=== PATIENT | male | born 1955 | race African-American/Black ===

== ENCOUNTER → 2017-02-20 | Outpatient (CLI) | payer OTHER, MEDICAID ==
[2016-10-20 14:43] VITALS: BP 179/129
--- NOTE | 2017-02-21 08:15 | RAD ---
HISTORY: Low back pain Study: Lumbar spine five view Comparison: August 20, 2016 Findings: There is some straightening of the normal lumbar lordosis. The alignment is otherwise normal. The ve rtebral bodies are of average height. No compression fractures are identified. Degenerative disc dis ease is present at all lumbar level to a significant degree. The pedicles are intact. The SI joints are normal. No spondylolysis or spondylolisthesis is identified. Diffuse bilateral facet degenerativ e joint disease is present. IMPRESSION: Significant degenerative disc disease at all lumbar levels least prominent at L1-2 Diffuse bilateral facet degenerative joint disease Reported By:
== END | disposition home or self-care (01) ==
LOC: RAD 15:01
PROVIDERS: ATTEND Specialist
DX: M54.5 Low back pain (principal); M51.36 Other intervertebral disc degeneration, lumbar region; M47.896 Other spondylosis, lumbar region
CPT/HCPCS: 72110

== ENCOUNTER → 2017-03-10 | Outpatient (CLI) | payer OTHER, MEDICAID ==
[2016-10-20 14:43] VITALS: BP 179/129
--- NOTE | 2017-03-10 11:37 | MRI ---
HISTORY: Degenerative disc disease Study: Lumbar spine MRI without Comparison: Lumbar spine radiograph February 20, 2017 Technique: Multiplanar multi-sequence MRI of the lumbar spine was obtained. Sagittal T1, sagittal T 2, and stir weighted images, axial T1, and axial T2 images were obtained. Findings: There are Modic type 1 degenerative endplate changes at L4-L5 and L5-S1. Bone marrow signal otherwis e appears normal. There is grade 1 degenerative anterolisthesis of L4 on L5. Lumbar vertebral body h eights and alignment otherwise appear normal. No acute fracture, subluxation or suspicious osseous l esion is seen. The conus is normal in signal and caliber, terminating at L1-L2. The imaged paraspinal soft tissues demonstrate no unexpected findings. T12 -- L1: There is mild disc desiccation/narrowing, paracentral disc bulge, greater on the left and ligamentum flavum thickening. Findings result and moderate bilateral foraminal narrowing, greater o n the left and mild canal stenosis. L1 -- L2: There is mild paracentral disc bulge, bilateral facet arthropathy and ligamentum flavum th ickening with mild-moderate bilateral foraminal narrowing and mild canal stenosis. L2 -- L3: There is moderate disc space narrowing, broad-based posterior disc bulge and bilateral lig amentum flavum thickening with moderate resultant bilateral foraminal narrowing, worse on the right and severe spinal canal stenosis. L3 -- L4: There is moderate disc space narrowing, broad-based posterior disc bulge and bilateral lig amentum flavum thickening. There is moderate resultant bilateral foraminal narrowing, worse on the r ight and severe canal stenosis. L4 -- L5: There is a large, broad-based posterior disc bulge and moderate bilateral facet arthropath y and ligamentum flavum thickening. There is moderate-severe resultant neural foraminal narrowing, g reater on the right with suspected impingement of the exiting right L4 nerve root. Severe narrowing of the spinal canal is also seen. L5 -- S1: there is severe disc space narrowing , broad based posterior disc bulge and bilateral liga mentum flavum thickening and facet arthropathy. There is moderate-severe resultant narrowing of the left greater than right neural foramina with suspected left L5 exiting nerve root impingement. Sever e spinal canal stenosis is also seen. IMPRESSION: Moderately advanced multilevel degenerative changes of the lumbosacral spine. Findings are most pron ounced at L4-L5 and L5-S1 where there is severe neural foraminal narrowing with suspected impingemen t of the exiting right L4 and left L5 nerve roots, respectively, as detailed above. Severe spinal ca nal stenosis is also present from L2-3 to L5-S1. Reported By:
== END ==
LOC: RAD 09:18
PROVIDERS: ATTEND Specialist
DX: M51.36 Other intervertebral disc degeneration, lumbar region (principal)
CPT/HCPCS: 72148

== ENCOUNTER 2017-03-31 13:35 | Day surgery (SDC) | payer OTHER, MEDICAID ==
--- NOTE | 2017-03-31 14:10 | DR.UPDATE ---
H&P Update History and Physical Update: History and Physical reviewed and patient examined. Yes with the following: Office H&P reviewed. Pt has both radicular and Facet symptoms Bi-lat. R>L. Will try L4-L5 R intralaminar ISAK intially for both diagnotic and theraputic rationale. All other information unchanged from office H&P.
[2017-03-31] MEDS ORDERED: MARCAINE 0.25% WITH EPI IJ ONE (14:17)
[2017-03-31] MEDS: MARCAINE/EPINEPHRINE ONE ×2 (14:24→14:29)
[2017-03-31] MEDS ORDERED: KENALOG INJ 40 MG ONE (14:28)
[2017-03-31 15:05] VITALS: BP 159/96
== END 2017-03-31 14:45 | disposition home or self-care (01) | DRG 552 ==
LOC: SURG1 13:35
PROVIDERS: ATTEND Specialist
PROC: 3E0R33Z Introduction of Anti-inflammatory into Spinal Canal, Percutaneous Approach (ICD-10-PCS; 2017-03-31)
PROC: B01BZZZ Fluoroscopy of Spinal Cord (ICD-10-PCS; 2017-03-31)
PROC: 3E0R3BZ Introduction of Anesthetic Agent into Spinal Canal, Percutaneous Approach (ICD-10-PCS; principal; 2017-03-31 13:30)
DX: M51.36 Other intervertebral disc degeneration, lumbar region (principal)
CPT/HCPCS: 62323; A4222; S0020; J3301

== ENCOUNTER → 2017-04-23 | Outpatient (CLI) | payer OTHER, MEDICAID ==
[2017-03-31 15:05] VITALS: BP 159/96
--- NOTE | 2017-04-23 13:50 | RAD ---
Right hand, three views Indication: Bilateral hand pain Comparison: March 09, 2013 Findings: Bone mineralization is normal. No acute fracture or malalignment is identified. There is mi nimal degenerative narrowing of the distal interphalangeal joints and thumb IP joint. Mild radiocarpa l joint space narrowing is also still seen. Small ossific bodies adjacent to the ulnar styloid are li alexander degenerative or posttraumatic in nature. Remaining joint spaces are preserved. No osseous erosio ns are identified. Soft tissues are unremarkable. Impression: Mild degenerative changes, as above without acute osseous abnormality. Reported By:
--- NOTE | 2017-04-23 13:55 | RAD ---
Left hand, three views Indication: Bilateral hand pain Comparison: December 30, 2013 Findings: Bone mineralization is normal. No acute fracture or malalignment is identified. There is mi ld degenerative arthrosis of the thumb CMC and radiocarpal joint. Remaining joint spaces of the hand are preserved without significant degenerative or erosive change. There is no localized soft tissue s welling. Impression: Mild degenerative changes, as above without acute osseous abnormality or evidence of inflammatory art hropathy. Reported By:
== END | disposition home or self-care (01) | DRG 554 ==
LOC: RAD 09:46
PROVIDERS: ATTEND Specialist
DX: M19.041 Primary osteoarthritis, right hand (principal); M19.042 Primary osteoarthritis, left hand
CPT/HCPCS: 73130

== ENCOUNTER 2017-06-02 09:25 | Emergency (ER) | payer OTHER, MEDICAID ==
[2017-06-02 09:34] VITALS: BP 110/86; BMI 21.7
[2017-06-02] MEDS ORDERED: TORADOL 60 MG VIAL IM ONE (09:53)
[2017-06-02] MEDS ORDERED: TORADOL 60 MG VIAL ONE (09:54)
--- NOTE | 2017-06-02 10:00 | DR.GENAD ---
HPI - PCP Primary Care Physician: HEBERT MELÉNDEZ - Complaint/Symptoms Chief Complaint Doctors Comments: Patient presents with complaint that his right hip is hurting. Pain 10, sharp,three days duration, aggravated by motion. He states that he has an appointment with his primary next week. Chief Complaint:: PT C/O INTERMITTANT RIGHT HIP PAIN AND THAT HE BARELY MADE IT UP HERE .. Self Treatment fo Chief Complaint: NORCO, MOTRIN - Source History Provided: Patient - Mode of Arrival Mode of Arrival: Ambulatory - Timing Onset of Chief Complaint: 05/31/17 PMH - PMH Past Medical History: Yes Past Medical History: Arthritis, Hypertension Past Surgical History: Yes Surgical History: CABG/Valve Surgery, Ortho Surgery - Family History History of Family Medical Conditions: Yes Family Medical History: Diabetes Mellitus, Cancer, Hypertension - Social History Does patient currently use any type of tobacco product: Yes Have you used tobacco products in the last 12 months: Yes Type of Tobacco Use: Cigarettes How many years tobacco product used: 43 Does any household member use tobacco: No Alcohol Use: None Do you use any recreational Drugs:: No Lives With: Alone Lives Where: Home - infectious screening In the last 2 months have you had wt loss of >10#?: NO Have you had fever, night sweats or hemotysis?: No Have you traveled outside the country in the last 6 months?: No ROS - Review of Systems Constitutional: No Symptoms Reported Eyes: No Symptoms Reported ENTM: No Symptoms Reported Respiratoy: No Symptoms Reported, See HPI Cardiovascular: No Symptoms Reported Gastrointestinal/Abdominal: No Symptoms Reported Genitourinary: No Symptoms Reported Neurological: No Symptoms Reported Musculoskeletal: Hip (right) Integumentary: No Symptoms Reported Hematologic/Lymphatic: No Symptoms Reported Endocrine: No Symptoms Reported Psychiatric: No Symptoms Reported All Other Systems: Reviewed and Negative PE - Vital Signs Vitals: Temperature 97.5 F Pulse Rate 87 Respiratory Rate 22 Blood Pressure [Right Arm] 138/90 Blood Pressure 110/86 O2 Sat by Pulse Oximetry 98 - General Limitations: No Limitations General Appearance: Alert, In No Apparent Distress - Head Head Exam: Normal Inspection, Atraumatic - Eyes Eye exam: Normal Appearance, PERRL, EOMI - ENT ENT Exam: Normal Exam External Ear Exam: Normal External Inspection TM/Canal Exam: Bilateral Normal Nose Exam: Normal Nose Exam Mouth Exam: Normal Inspection Throat Exam: Normal Inspection - Neck Neck Exam: Normal Inspection, Full ROM - Chest Chest Inspection: Normal Inspection - Respiratory Respiratory Exam: Normal Lung Sounds Bilat Respiratory Exam: Bilateral Clear to Auscultation - Cardiovascular Cardiovascular Exam: Regular Rate, Normal Rhythm - Abdominal Exam Abdominal Exam: Normal Inspection, Normal Bowel Sounds Abdominal Tenderness: negative: RUQ, RLQ, LUQ, LLQ, Epigastrium, Suprapubic, Diffuse, Mild, Moderate, Severe, Other - Extremities Extremities Exam: Other (right hip pain) - Back Back Exam: Normal Inspection - Neurologic Neurological Exam: Alert, Oriented X3, CN II-XII Intact - Psychiatric Psychiatric Exam: Normal Affect - Skin Skin Exam: Warm, Dry, Intact Course - Reevaluation 1st: Improved - Diagnosis Discharge Problem: Osteoarthritis of right hip Qualifiers: Osteoarthritis type: primary Qualified Code(s): M16.11 - Unilateral primary osteoarthritis, right hip - Discharge Plan Condition: Stable - Follow ups/Referrals Follow ups/Referrals: NFD,None [Primary Care Provider] - 3 days - Instructions
== END 2017-06-02 10:27 | disposition home or self-care (01) ==
LOC: ER 09:38
DX: M16.11 Unilateral primary osteoarthritis, right hip (principal)
CPT/HCPCS: 96372; 99282; J1885

== ENCOUNTER 2017-06-20 11:22 | Emergency (ER) | payer OTHER, MEDICAID ==
[2017-06-20 11:26] VITALS: BP 119/89; BMI 20.9
--- NOTE | 2017-06-20 12:20 | DR.GENAD ---
HPI - PCP Primary Care Physician: HEBERT - HPI Comment HPI Comment: HISTORY BELOW. - Complaint/Symptoms Chief Complaint Doctors Comments: PAIN RT HIP THAT GOT WORSE TODAY. ALL EXTREMITY JOINTS HAVE ATHRITIS AND ARE SORE. GENERALIZE WEAKNESS. HAD LIVER BIOPSY DONE. WAS NPO FOR TEST. PAIN TODAY SIMILAR TO PREVIOUS ARTHRITIS TEST. NO FEVER. Chief Complaint:: PT. C/O GENERALIZED WEAKNESS THAT STARTED YESTERDAY. PT. HAD AN OUT-PATIENT LIVER BIOPSY PROCEDURE DONE TODAY. - Nurses notes reviewed Nurses Notes Review: Yes - Source History Provided: Patient, Friend - Mode of Arrival Mode of Arrival: Wheelchair - Timing Onset of Chief Complaint: 06/19/17 Came on: Gradually - Duration Duration: Constant Duration: Days - Severity Severity: Moderate PMH - PMH Past Medical History: Yes Past Medical History: Arthritis, Hypertension Past Surgical History: Yes Surgical History: CABG/Valve Surgery, Ortho Surgery - Family History History of Family Medical Conditions: Yes Family Medical History: Diabetes Mellitus, Cancer, Hypertension - Social History Does patient currently use any type of tobacco product: Yes Have you used tobacco products in the last 12 months: Yes Type of Tobacco Use: Cigarettes Does any household member use tobacco: Yes Alcohol Use: Occasionally Do you use any recreational Drugs:: Yes Lives With: Significant Other Lives Where: Home - infectious screening In the last 2 months have you had wt loss of >10#?: NO Have you had fever, night sweats or hemotysis?: No Have you traveled outside the country in the last 6 months?: No Isolation: Standard ROS - Review of Systems Constitutional: No Symptoms Reported Eyes: No Symptoms Reported ENTM: No Symptoms Reported Respiratoy: No Symptoms Reported Cardiovascular: No Symptoms Reported Gastrointestinal/Abdominal: No Symptoms Reported Genitourinary: No Symptoms Reported Neurological: No Symptoms Reported Musculoskeletal: Joint Pain, Muscle Pain, Right, Hip Integumentary: No Symptoms Reported Hematologic/Lymphatic: No Symptoms Reported Endocrine: No Symptoms Reported All Other Systems: Reviewed and Negative PE - Vital Signs Vitals: Pulse Rate 80 Respiratory Rate 17 Blood Pressure [Right Arm] 138/90 Blood Pressure 119/89 O2 Sat by Pulse Oximetry 96 - General Limitations: No Limitations General Appearance: Alert - Head Head Exam: Normal Inspection - Eyes Eye exam: Normal Appearance - ENT ENT Exam: Normal Exam External Ear Exam: Normal External Inspection TM/Canal Exam: Bilateral Normal Nose Exam: Normal Nose Exam Mouth Exam: Normal Inspection Throat Exam: Normal Inspection - Neck Neck Exam: Normal Inspection - Chest Chest Inspection: Symmetric Chest Wall Rise - Respiratory Respiratory Exam: Normal Lung Sounds Bilat Respiratory Exam: Bilateral Rhonchi, Lower Rhonchi - Cardiovascular Cardiovascular Exam: Regular Rate, Normal Rhythm, Normal Heart Sounds - Abdominal Exam Abdominal Exam: Normal Inspection, Normal Bowel Sounds. negative: Tenderness - Extremities Extremities Exam: Tenderness (TENDERNESS RT HIP, LOPEZ.) - Back Back Exam: Normal Inspection - Neurologic Neurological Exam: Alert, Oriented X3 - Psychiatric Psychiatric Exam: Normal Affect, Normal Mood - Skin Skin Exam: Normal Color MDM - Differential Diagnosis Differential Diagnosis: ARTHRITIS. RIGHT HIP PAIN, BURSITIS, TENDINITIS Course - Treatment Treatment: SEE ORDERS. PAIN IMPROVE, PATIENT FEELING BETTER. - Education/Counseling Education/Counseling: Patient, Education Educated On: Treatment, Diagnosis, Needs for Follow Up - Diagnosis Discharge Problem: Arthralgia Qualifiers: Joint pain location: hip Laterality: right Qualified Code(s): M25.551 - Pain in right hip Osteoarthritis Qualifiers: Osteoarthritis location: multiple joints Osteoarthritis type: other Qualified Code(s): M15.8 - Other polyosteoarthritis - Discharge Plan Disposition: 01 HOME, SELF-CARE Condition: Stable Prescriptions: Acetaminophen with Codeine [Tylenol/Codeine #3 300-30 mg] 1 tab PO Q12H PRN #12 tab PRN Reason: Pain - Follow ups/Referrals Follow ups/Referrals: Leena AMBROSIO [Primary Care Provider] - 3 days - Instructions Instructions: Osteoarthritis, Joint Pain Additional Instructions: RETURN TO ED IF WORSE.
[2017-06-20] MEDS ORDERED: DEMEROL INJ IM ONE (12:21)
[2017-06-20] MEDS ORDERED: ZOFRAN INJ 4 MG VIAL IM ONE (12:21)
[2017-06-20] MEDS ORDERED: ZOFRAN INJ 4 MG VIAL ONE (12:28)
[2017-06-20] MEDS ORDERED: DEMEROL INJ ONE (12:29)
== END 2017-06-20 13:31 | disposition home or self-care (01) ==
LOC: ER 11:42
DX: M15.8 Other polyosteoarthritis (principal); M25.551 Pain in right hip; R94.5 Abnormal results of liver function studies; K86.89 Other specified diseases of pancreas
CPT/HCPCS: 76705; 96372; 99282; J2175; J2405

== ENCOUNTER → 2017-06-20 | Outpatient (CLI) | payer OTHER, MEDICAID ==
[2017-06-02 09:34] VITALS: BP 110/86
--- NOTE | 2017-06-20 15:17 | US ---
History: Elevated liver function tests Exam: Liver ultrasound Comparison: None Technique: Multiple grayscale and color flow Doppler images of the liver were obtained. Findings: The liver is normal size and echogenicity. There is hepatopetal flow in the portal vein and visualize d hepatic veins and IVC are unremarkable. The gallbladder is normal size with no gallstones or wall t hickening. The common duct measures 7 mm. The pancreas is partially obscured due to overlying bowel g as. The right kidney measures 9.2 cm in length and is normal in echogenicity with no hydronephrosis, renal stone or mass. There is no ascites. IMPRESSION: Normal liver, gallbladder, and biliary tree . Partial obscuration of the pancreas due to overlying bowel gas. Reported By:
== END | disposition home or self-care (01) ==
LOC: RAD 10:01
PROVIDERS: ATTEND Nurse Practitioner Family
DX: M15.8 Other polyosteoarthritis (principal); M25.551 Pain in right hip; R94.5 Abnormal results of liver function studies; K86.89 Other specified diseases of pancreas
CPT/HCPCS: 76705

== ENCOUNTER 2017-07-16 13:58 | Emergency (ER) | payer OTHER, MEDICAID ==
[2017-07-16 14:06] VITALS: BMI 20.3
[2017-07-16] MEDS ORDERED: TORADOL 60 MG VIAL IM ONE (14:39)
[2017-07-16] MEDS ORDERED: TORADOL 60 MG VIAL ONE (14:42)
--- NOTE | 2017-07-16 14:55 | DR.DIZZY ---
HPI - Time seen Time seen: 14:50 - PCP Primary Care Physician: none - HPI Comment HPI Comment: SYMTOMS PERSISTENT. DENIES TRAUMA. - Complaint Chief Complaint Doctor Comments: DIZZINESS TODAY WITH IMBALANCE. PATIENT IS ALSO HAVING FLARE UP OF CHRONIC RIGHT HIP PAIN. Chief Complaint:: "right hip pain and dizzie" - Nurses Notes Reviewed Nurses Notes Review: Yes - Source History Provided: Patient - Mode of Arrival Mode of Arrival: Ambulatory - Timing Onset of Chief Complaint: 07/15/17 Came on: Suddenly - Duration Duration: Constant Duration: Hours - Location of Weakness Weakness Location: Generalized - Context Onset: At rest Does pt take pot. toxic medication?: No History of: None Stroke Symptoms: Dizziness - Severity Severity: Normal activity level (USES WHEEL CHAIR AND WALKING STICK.) - Modifying factors Worsens: Nothing - Associated signs and symptoms Associated Signs and Symptoms: Vertigo, Imbalance PMH - PMH Past Medical History: Yes Past Medical History: Arthritis, Hypertension Past Surgical History: Yes Surgical History: CABG/Valve Surgery, Ortho Surgery - Family History History of Family Medical Conditions: Yes Family Medical History: Diabetes Mellitus, Cancer, Hypertension - Social History Does patient currently use any type of tobacco product: Yes Have you used tobacco products in the last 12 months: Yes Type of Tobacco Use: Cigarettes How many years tobacco product used: 25 Does any household member use tobacco: No Alcohol Use: None Do you use any recreational Drugs:: Yes Lives With: Family Lives Where: Home - infectious screening In the last 2 months have you had wt loss of >10#?: NO Have you had fever, night sweats or hemotysis?: No Have you traveled outside the country in the last 6 months?: No Isolation: Standard ROS - Review of Systems Constitutional: Weakness, Fatigue. negative: Chills, Fever Eyes: No Symptoms Reported. negative: Eye Pain, Discharge ENTM: No Symptoms Reported. negative: Ear Pain, Nose Discharge, Nose Congestion , Throat Pain Respiratoy: Non-Productive Cough, Short of Breath. negative: Productive Cough, Wheezing, Hemoptysis Cardiovascular: Chest Pain Gastrointestinal/Abdominal: No Symptoms Reported. negative: Constipation, Diarrhea, Nausea Genitourinary: negative: Dysuria, Frequency, Hematuria Neurological: Headache, Dizziness Musculoskeletal: Back Pain, Joint Pain Integumentary: No Symptoms Reported Hematologic/Lymphatic: No Symptoms Reported Endocrine: No Symptoms Reported All Other Systems: Reviewed and Negative PE - Vital Signs Vitals: Temperature 97.6 F Pulse Rate 89 Respiratory Rate 18 Blood Pressure [Right Arm] 133/90 Blood Pressure 166/104 O2 Sat by Pulse Oximetry 100 - General Limitations: No Limitations General Appearance: Alert - Head Head Exam: Normal Inspection - Eyes Eye exam: Normal Appearance Pupils: Regular, Round: Bilateral, Reactive: Bilateral Sclera/Conjunctival: Normal Inspection: Bilateral - ENT ENT Exam: Normal Exam - Neck Neck Exam: Trachea Midline. negative: Tenderness, Meningismus, Lymphadenopathy - Chest Chest Inspection: Symmetric Chest Wall Rise - Respiratory Respiratory Exam: Normal Lung Sounds Bilat Respiratory Exam: Bilateral Clear to Auscultation - Cardiovascular Cardiovascular Exam: Regular Rate, Normal Rhythm, Normal Heart Sounds - Abdominal Exam Abdominal Exam: Normal Bowel Sounds, Soft. negative: Tenderness - Rectal Rectal Exam: Deferred - Extremeties Extremities Exam: Tenderness (RT HIP TENDER.) - Back Back Exam: Paraspinal Tenderness - Neurologic Neurological Exam: Alert, Oriented X3 Speech: Fluid Speech Cranial Nerve Exam: EOM Function (II, III, IV, ): Normal, Facial Sensation (V) : Normal, Facial Palsy (VII): Normal, Gag reflex (XI): Normal, Spinal Accessory Function (XI): Normal, Tongue Deviation: Normal Motor Strength - LUE: 5/5 Motor Strength - RUE: 5/5 Motor Strength - LLE: 5/5 Motor Strength - RLE: 4/5 - Psychiatric Psychiatric Exam: Normal Affect, Normal Mood - Skin Skin Exam: Normal Color [facility] - Differential Diagnosis Differential Diagnosis: Anemia, CVA, Dehydration, Dysrhythmia, Electrolyte disorder, Labyrinthitis, Meniere's disease, Myocardial Infarction, TIA, Vertigo - peripheral (CVA) Course - Treatment Treatment: SEE ORDERS. IM TORADOL, PAIN IMPROVED - Reevaluation 1st: Improved - Education/Counseling Education/Counseling: Patient, Education Educated On: Treatment, Diagnosis, Needs for Follow Up ROR - Labs Reviewed Laboratory Results Reviewed?: Yes Result Diagrams: 07/16/17 14:59 07/16/17 14:59 Laboratory: WBC 7.7 X10^3/uL (3.6-10.0) 07/16/17 14:59 RBC 4.00 X10^6/uL (4.7-6.0) L 07/16/17 14:59 Hgb 13.1 g/dL (13.5-18.0) L 07/16/17 14:59 Hct 38.7 % (42.0-54.0) L 07/16/17 14:59 MCV 96.7 fL (80.0-100.0) 07/16/17 14:59 MCH 32.6 pg (27.0-34.0) 07/16/17 14:59 MCHC 33.8 g/dL (33.0-35.0) 07/16/17 14:59 RDW 14.3 % (11.6-16.5) 07/16/17 14:59 Plt Count 267 X10^3/uL (150.0-450.0) 07/16/17 14:59 MPV 9.0 fL (7.4-11.0) 07/16/17 14:59 Neut % 39.3 % (42.0-75.0) L 07/16/17 14:59 Lymph % 41.1 % (21.0-51.0) 07/16/17 14:59 Edgar % 9.0 % (0.0-13.0) 07/16/17 14:59 Eos % 9.6 % (0.9-2.9) H 07/16/17 14:59 Baso % 1.0 % (0.2-1.0) 07/16/17 14:59 Neut # 3.0 x10^3/uL (2.2-4.8) 07/16/17 14:59 Lymph # 3.2 X10^3/uL (1.3-2.9) H 07/16/17 14:59 Edgar # 0.7 x10^3/uL (0.3-0.8) 07/16/17 14:59 Eos # 0.7 x10^3/uL (0.0-0.2) H 07/16/17 14:59 Baso # 0.1 X10^3/uL (0.0-0.1) 07/16/17 14:59 Absolute Nucleated RBC 0.1 /100WBC 07/16/17 14:59 Sodium 142 mmol/L (136-145) 07/16/17 14:59 Corrected Sodium TNP 07/16/17 14:59 Potassium 3.5 mmol/L (3.5-5.1) 07/16/17 14:59 Chloride 106 mmol/L (98-107) 07/16/17 14:59 Carbon Dioxide 28.6 mmol/L (21-32) 07/16/17 14:59 BUN 13 mg/dL (7-18) 07/16/17 14:59 Creatinine 0.82 mg/dL (0.70-1.30) 07/16/17 14:59 Est GFR (MDRD) Af Amer > 60 (>60) 07/16/17 14:59 Est GFR (MDRD) Non-Af > 60 (>60) 07/16/17 14:59 Glucose 110 mg/dL (65-99) H 07/16/17 14:59 Calcium 8.8 mg/dL (8.5-10.1) 07/16/17 14:59 Corrected Calcium 9.7 mg/dL (8.5-10.1) 07/16/17 14:59 Total Bilirubin 0.20 mg/dL (0.2-1.0) 07/16/17 14:59 AST 101 Units/L (15-37) H 07/16/17 14:59 ALT 142 Units/L (12-78) H 07/16/17 14:59 Alkaline Phosphatase 82 Units/L (46-116) 07/16/17 14:59 Creatine Kinase 327 Units/L (39-308) H 07/16/17 14:59 CK-MB (CK-2) 4.7 ng/mL (0-4.0) H* 07/16/17 14:59 CK/CKMB % Calc 1.4 % (<4) 07/16/17 14:59 Troponin I 0.02 ng/mL (0-1.5) 07/16/17 14:59 Total Protein 7.2 g/dL (6.4-8.2) 07/16/17 14:59 Albumin 2.9 g/dL (3.4-5.0) L 07/16/17 14:59 Globulin 4.3 g/dL (2.5-4.5) 07/16/17 14:59 Albumin/Globulin Ratio 0.7 Ratio (1.1-2.1) L 07/16/17 14:59 - XRAY XRAY Interpreted by: Radiologist XRAY Findings: REPORT DISCUSS WITH PATIENT. - EKG Rhythm: NSR (EKG NOTED) - Diagnosis Discharge Problem: Arthritis, Dizziness - Discharge Plan Disposition: 01 HOME, SELF-CARE Condition: Stable Prescriptions: Ketorolac Tromethamine [Toradol Tab] 10 mg PO Q8H PRN #15 tab PRN Reason: Pain - Follow ups/Referrals Follow ups/Referrals: NFD,None [Primary Care Provider] - 07/17/17 - Instructions Instructions: Osteoarthritis, Dizziness, [id number] Additional Instructions: RETURN TO ED IF WORSE.
[2017-07-16 15:17] LABS: BASOPHILS # (AUTO) 0.1 X10^3/uL (0.0-0.1); EOSINOPHILS # (AUTO) 0.7 x10^3/uL (0.0-0.2); EOSINOPHILS % (AUTO) 9.6 % (0.9-2.9); HEMATOCRIT 38.7 % (42.0-54.0); HEMOGLOBIN 13.1 g/dL (13.5-18.0); LYMPHOCYTES # (AUTO) 3.2 X10^3/uL (1.3-2.9); LYMPHOCYTES % (AUTO) 41.1 % (21.0-51.0); MEAN CORPUSCULAR HEMOGLOBIN 32.6 pg (27.0-34.0); MEAN CORPUSCULAR HGB CONC 33.8 g/dL (33.0-35.0); MEAN CORPUSCULAR VOLUME 96.7 fL (80.0-100.0); MONOCYTES # (AUTO) 0.7 x10^3/uL (0.3-0.8); NEUTROPHILS % (AUTO) 39.3 % (42.0-75.0); PLATELET COUNT 267 X10^3/uL (150.0-450.0); RED CELL DISTRIBUTION WIDTH 14.3 % (11.6-16.5); WHITE BLOOD COUNT 7.7 X10^3/uL (3.6-10.0)
[2017-07-16 15:27] LABS: BLOOD UREA NITROGEN 13 mg/dL (7-18); CALCIUM 8.8 mg/dL (8.5-10.1); CARBON DIOXIDE 28.6 mmol/L (21-32); CHLORIDE 106 mmol/L (98-107); CREATININE 0.82 mg/dL (0.70-1.30); SODIUM 142 mmol/L (136-145); TROPONIN I 0.02 ng/mL (0-1.5); eGFR BLACK RACES > 60 (>60); eGFR NON BLACK RACES > 60 (>60)
[2017-07-16 15:50] LABS: ALANINE AMINOTRANSFERASE 142 Units/L (12-78); ALBUMIN 2.9 g/dL (3.4-5.0); ALKALINE PHOSPHATASE 82 Units/L (46-116); ASPARTATE AMINO TRANSFERASE 101 Units/L (15-37); CKMB % 1.4 % (<4); COR CA(FOR HYPOALB) 9.7 mg/dL (8.5-10.1); CREATINE KINASE 327 Units/L (39-308); TOTAL PROTEIN 7.2 g/dL (6.4-8.2)
[2017-07-16 15:52] LABS: CREATINE KINASE MB 4.7 ng/mL (0-4.0)
[2017-07-16 16:25] VITALS: BP 133/90
--- NOTE | 2017-07-16 16:41 | RAD ---
Examination: AP chest History: Dizzy Comparison reference: 09/25/2015 Findings: Continued normal heart size with tortuous, dilated thoracic aorta. The lungs are clear exce pt for linear atelectasis adjacent to the left diaphragm. There is no evidence for pneumonia, pneumot horax or large pleural effusion. Impression: Small focus of subsegmental atelectasis left lung base. No change otherwise. Dilated aort a is suggestive of hypertension. Correlate clinically. Reported By:
--- NOTE | 2017-07-16 16:45 | CT ---
HISTORY: Dizziness Study: CT of the head Comparison: None Technique: Serial axial images were obtained from the skullbase to the vertex without infusion of IV contrast. Findings: The ventricles, sulci, and cisterns demonstrate an appearance consistent with a mild degree of genera lized atrophy. Patchy areas of decreased attenuation within the periventricular, subcortical, and sub insular white matter suggest changes of chronic small vessel ischemic disease. No evidence of acute i ntracranial hemorrhage is appreciated. No significant midline shift is noted. Images demonstrate mode rate opacification and mucosal thickening of the ethmoid air cells. If symptoms or clinical concern p ersist recommend continued follow-up for further evaluation. IMPRESSION: No evidence of acute intracranial abnormality is appreciated. Mild generalized atrophy with findings consistent with changes of chronic small vessel ischemic disea se. Ethmoid sinus disease as noted above. Reported By:
== END 2017-07-16 16:25 | disposition home or self-care (01) ==
LOC: ER 14:11
DX: M19.90 Unspecified osteoarthritis, unspecified site (principal); R42 Dizziness and giddiness
CPT/HCPCS: 36415; 70450; 71010; 80053; 82550; 82553; 84484; 85025; 96372; 99283; J1885

== ENCOUNTER 2017-09-21 14:08 | Emergency (ER) | payer OTHER, MEDICAID ==
[2017-09-21 14:20] VITALS: BP 124/84; BMI 23.5
[2017-09-21] MEDS ORDERED: TORADOL 60 MG VIAL IM ONE (14:59)
[2017-09-21] MEDS ORDERED: NORFLEX INJ IM ONE (14:59)
[2017-09-21] MEDS ORDERED: TORADOL 60 MG VIAL ONE (15:01)
[2017-09-21] MEDS ORDERED: NORFLEX INJ ONE (15:01)
--- NOTE | 2017-09-21 15:01 | DR.GENAD ---
HPI - PCP Primary Care Physician: HEBERT - HPI Comment HPI Comment: PATIENT HAVE CHRONIC PAIN FROM ARTHRITIS. WEATHER CAUSING HIS CONDITION TO GET WORSE. - Complaint/Symptoms Chief Complaint Doctors Comments: LOWER BACK AND MUSCLE PAIN FOR FEW DAYS. Chief Complaint:: PT C/O LOWER BACK PAIN "ARTHRITIS". - Nurses notes reviewed Nurses Notes Review: Yes - Source History Provided: Patient - Mode of Arrival Mode of Arrival: Ambulatory - Timing Onset of Chief Complaint: 09/20/17 Came on: Suddenly - Duration Duration: Constant Duration: Days - Severity Severity: Moderate PMH - PMH Past Medical History: Yes Past Medical History: Arthritis, Hypertension Past Surgical History: Yes Surgical History: CABG/Valve Surgery, Ortho Surgery - Family History History of Family Medical Conditions: Yes Family Medical History: Diabetes Mellitus, Cancer, Hypertension - Social History Does patient currently use any type of tobacco product: Yes Have you used tobacco products in the last 12 months: Yes Type of Tobacco Use: Cigarettes Does any household member use tobacco: Yes Alcohol Use: Heavy, DAILY Do you use any recreational Drugs:: No Lives With: Alone Lives Where: Home - infectious screening In the last 2 months have you had wt loss of >10#?: NO Have you had fever, night sweats or hemotysis?: No Have you traveled outside the country in the last 6 months?: No Isolation: Standard ROS - Review of Systems Constitutional: No Symptoms Reported, Fatigue Eyes: negative: Eye Pain, Discharge ENTM: Nose Congestion. negative: Ear Pain, Nose Discharge, Throat Pain Respiratoy: No Symptoms Reported. negative: Productive Cough, Non-Productive Cough, Moist Cough Cardiovascular: No Symptoms Reported Gastrointestinal/Abdominal: No Symptoms Reported Genitourinary: No Symptoms Reported Neurological: No Symptoms Reported Musculoskeletal: Joint Pain, Joint Swelling, Muscle Pain, Muscle Stiffness Integumentary: negative: Bruises Hematologic/Lymphatic: No Symptoms Reported Endocrine: No Symptoms Reported All Other Systems: Reviewed and Negative PE - Vital Signs Vitals: Temperature 97.7 F Pulse Rate 96 Respiratory Rate 20 Blood Pressure [Right Arm] 133/90 Blood Pressure 124/84 O2 Sat by Pulse Oximetry 99 - General Limitations: No Limitations General Appearance: Alert - Head Head Exam: Normal Inspection - Eyes Eye exam: Normal Appearance - ENT ENT Exam: Normal External Ear Exam External Ear Exam: Normal External Inspection TM/Canal Exam: Bilateral Normal Nose Exam: Normal Nose Exam Mouth Exam: Normal Inspection Throat Exam: Normal Inspection - Neck Neck Exam: Normal Inspection - Chest Chest Inspection: Symmetric Chest Wall Rise - Respiratory Respiratory Exam: Normal Lung Sounds Bilat Respiratory Exam: Bilateral Clear to Auscultation - Cardiovascular Cardiovascular Exam: Regular Rate, Normal Rhythm, Normal Heart Sounds - Abdominal Exam Abdominal Exam: Normal Bowel Sounds, Soft, Tenderness - Extremities Extremities Exam: Normal Inspection - Back Back Exam: Paraspinal Tenderness - Neurologic Neurological Exam: Alert, Oriented X3 - Psychiatric Psychiatric Exam: Normal Affect, Normal Mood - Skin Skin Exam: Normal Color MDM - Additional Information Additional Information Obtained From: Family - Differential Diagnosis Differential Diagnosis: ARTHRITIS, MUSCULOSKELETAL PAIN. Course - Treatment Treatment: SEE ORDERS. - Education/Counseling Education/Counseling: Patient, Education Educated On: Treatment, Diagnosis, Needs for Follow Up - Diagnosis Discharge Problem: Arthralgia, Arthritis, Degenerative joint disease of right hip, Degenerative joint disease (DJD) of hip - Discharge Plan Disposition: 01 HOME, SELF-CARE Condition: Stable Prescriptions: Acetaminophen with Codeine [Tylenol/Codeine #3 300-30 mg] 1 tab PO Q4-6H PRN # 15 tab PRN Reason: Pain Meloxicam [Mobic Tab 15 mg] 15 mg PO DAILY #30 tab Tizanidine HCl [Zanaflex 2 mg] 2 mg PO Q8H PRN #20 cap PRN Reason: Muscle Spasms - Follow ups/Referrals Follow ups/Referrals: Leena AMBROSIO [Primary Care Provider] - 3 days - Instructions Instructions: Osteoarthritis, Back Pain, Adult, [id number], Joint Pain, Easy- to-Read Additional Instructions: RETURN TO ED IF WORSE.
== END 2017-09-21 15:36 | disposition home or self-care (01) ==
LOC: ER 14:12
DX: M25.50 Pain in unspecified joint (principal); M19.90 Unspecified osteoarthritis, unspecified site; M16.11 Unilateral primary osteoarthritis, right hip
CPT/HCPCS: 96372; 99282; J1885; J2360

== ENCOUNTER → 2017-09-24 | Outpatient (CLI) | payer OTHER, MEDICAID ==
[2017-09-21 14:20] VITALS: BP 124/84
[2017-09-24 11:02] LABS: ALANINE AMINOTRANSFERASE 144 Units/L (12-78); ASPARTATE AMINO TRANSFERASE 116 Units/L (15-37)
== END ==
LOC: LAB 10:18
DX: G64 Other disorders of peripheral nervous system (principal); M06.4 Inflammatory polyarthropathy; M15.4 Erosive (osteo)arthritis; M19.041 Primary osteoarthritis, right hand; M19.042 Primary osteoarthritis, left hand
CPT/HCPCS: 36415; 84450; 84460

== ENCOUNTER 2017-10-28 10:23 | Emergency (ER) | payer OTHER, MEDICAID ==
[2017-10-28 10:28] VITALS: BP 164/81; BMI 20.3
[2017-10-28] MEDS ORDERED: NORFLEX INJ IM ONE (10:47)
[2017-10-28] MEDS ORDERED: TORADOL 30 MG VIAL IM ONE (10:48)
--- NOTE | 2017-10-28 10:52 | DR.GENAD ---
HPI - PCP Primary Care Physician: bao - HPI Comment HPI Comment: longstanding OA in back, no new trauma or fall - Complaint/Symptoms Chief Complaint:: pt stated the weather has his arthritis flared up. and he needed his toradol shot. pt stated he is out of his pain meds and has a appointment with dr ambrosio on 6 - Source History Provided: Patient - Mode of Arrival Mode of Arrival: Ambulatory - Timing Onset of Chief Complaint: 10/27/17 PMH - PMH Past Medical History: Yes Past Medical History: Arthritis, Hypertension Past Surgical History: Yes Surgical History: CABG/Valve Surgery, Ortho Surgery - Family History History of Family Medical Conditions: Yes Family Medical History: Diabetes Mellitus, Cancer, Hypertension - Social History Does patient currently use any type of tobacco product: Yes Have you used tobacco products in the last 12 months: Yes Type of Tobacco Use: Cigarettes How many years tobacco product used: 20 Does any household member use tobacco: No Alcohol Use: None Do you use any recreational Drugs:: No Lives With: Family Lives Where: Home - infectious screening In the last 2 months have you had wt loss of >10#?: NO Have you had fever, night sweats or hemotysis?: No Have you traveled outside the country in the last 6 months?: No Isolation: Standard ROS - Review of Systems Constitutional: No Symptoms Reported Eyes: No Symptoms Reported ENTM: No Symptoms Reported Respiratoy: No Symptoms Reported Cardiovascular: No Symptoms Reported Gastrointestinal/Abdominal: No Symptoms Reported Genitourinary: No Symptoms Reported Neurological: No Symptoms Reported Musculoskeletal: Back Pain (lower back pain) Integumentary: No Symptoms Reported Hematologic/Lymphatic: No Symptoms Reported Endocrine: No Symptoms Reported Psychiatric: No Symptoms Reported All Other Systems: Reviewed and Negative PE - Vital Signs Vitals: Temperature 97.9 F Pulse Rate 111 Respiratory Rate 16 Blood Pressure [Right Arm] 133/90 Blood Pressure 164/81 O2 Sat by Pulse Oximetry 99 - General Limitations: No Limitations General Appearance: Alert, In No Apparent Distress - Head Head Exam: Normal Inspection - Eyes Eye exam: Normal Appearance - ENT ENT Exam: Normal Exam - Neck Neck Exam: Normal Inspection, Full ROM, Trachea Midline - Respiratory Respiratory Exam: Normal Lung Sounds Bilat. negative: Respiratory Distress Respiratory Exam: Bilateral Clear to Auscultation - Cardiovascular Cardiovascular Exam: Regular Rate, Normal Rhythm. negative: Systolic Murmur, Diastolic Murmur - Abdominal Exam Abdominal Exam: Normal Bowel Sounds, Soft - Extremities Extremities Exam: Normal Inspection, Full ROM - Back Back Exam: Normal Inspection, Tenderness (lower back +TTP) - Neurologic Neurological Exam: Alert, Oriented X3 - Psychiatric Psychiatric Exam: Normal Affect, Normal Mood ROR - Other Results Comments: did not perform any imaging today - Diagnosis Discharge Problem: Arthralgia of back - Discharge Plan Disposition: 01 HOME, SELF-CARE Condition: Stable - Follow ups/Referrals Follow ups/Referrals: Leena AMBROSIO [Primary Care Provider] - 3 days - Instructions
[2017-10-28] MEDS ORDERED: NORFLEX INJ ONE (10:59)
[2017-10-28] MEDS ORDERED: TORADOL 60 MG VIAL ONE (10:59)
== END 2017-10-28 11:21 | disposition home or self-care (01) ==
LOC: ER 10:33
DX: M54.5 Low back pain (principal)
CPT/HCPCS: 96372; 99282; J1885; J2360

== ENCOUNTER 2017-10-29 13:47 | Emergency (ER) | payer OTHER, MEDICAID ==
[2017-10-29 14:26] VITALS: BP 134/95; BMI 24.2
--- NOTE | 2017-10-29 15:02 | DR.GENAD ---
HPI - PCP Primary Care Physician: HEBERT Salomon HPI Comment HPI Comment: HISTORY CHRONIC ARTHRITIS. NO TRAUMA. INCREASE GENERALIZE PAIN. HAVING CHEST PAIN ALSO. PATIENT HE DOES NOT FEEL GOOD TODAY. - Complaint/Symptoms Chief Complaint Doctors Comments: LEFT SIDED WEANESS NOTED SINCE YESTERDAY. Chief Complaint:: DONT HAVE ANY PAIN JUST WEAK IN LEGS AND OUT OF PAIN MEDS - Nurses notes reviewed Nurses Notes Review: Yes - Source History Provided: Patient - Mode of Arrival Mode of Arrival: Ambulatory - Timing Onset of Chief Complaint: 10/29/17 Came on: Suddenly - Duration Duration: Constant Duration: Days - Severity Severity: Moderate PMH - PMH Past Medical History: Yes Past Medical History: Arthritis, Hypertension Past Surgical History: Yes Surgical History: CABG/Valve Surgery, Ortho Surgery - Family History History of Family Medical Conditions: Yes Family Medical History: Diabetes Mellitus, Cancer, Hypertension - Social History Type of Tobacco Use: Cigarettes Alcohol Use: None Do you use any recreational Drugs:: No Lives With: Spouse Lives Where: Home - infectious screening In the last 2 months have you had wt loss of >10#?: YES Have you had fever, night sweats or hemotysis?: No Have you traveled outside the country in the last 6 months?: No Isolation: Standard ROS - Review of Systems Constitutional: Weakness, Fatigue. negative: Chills, Fever Eyes: No Symptoms Reported. negative: Eye Pain, Discharge ENTM: negative: Ear Pain, Nose Discharge, Nose Congestion, Throat Pain Respiratoy: Moist Cough. negative: Short of Breath, Wheezing Cardiovascular: Chest Pain Gastrointestinal/Abdominal: No Symptoms Reported Genitourinary: No Symptoms Reported Neurological: No Symptoms Reported Musculoskeletal: Back Pain, Joint Pain, Joint Swelling, Muscle Pain, Neck Pain Integumentary: No Symptoms Reported Hematologic/Lymphatic: No Symptoms Reported Endocrine: No Symptoms Reported All Other Systems: Reviewed and Negative PE - Vital Signs Vitals: Temperature 97.3 F Pulse Rate 76 Respiratory Rate 14 Blood Pressure [Right Arm] 133/90 Blood Pressure 134/95 O2 Sat by Pulse Oximetry 95 - General Limitations: No Limitations General Appearance: Alert - Head Head Exam: Normal Inspection - Eyes Eye exam: Normal Appearance - ENT ENT Exam: Normal External Ear Exam External Ear Exam: Normal External Inspection TM/Canal Exam: Bilateral Normal Nose Exam: Normal Nose Exam Mouth Exam: Normal Inspection Throat Exam: Normal Inspection - Neck Neck Exam: Trachea Midline - Chest Chest Inspection: Symmetric Chest Wall Rise - Respiratory Respiratory Exam: Normal Lung Sounds Bilat Respiratory Exam: Bilateral Clear to Auscultation - Cardiovascular Cardiovascular Exam: Regular Rate, Normal Rhythm, Normal Heart Sounds - Abdominal Exam Abdominal Exam: Normal Bowel Sounds, Soft. negative: Tenderness - Extremities Extremities Exam: Normal Inspection - Back Back Exam: Normal Inspection - Neurologic Neurological Exam: Alert, Oriented X3 - Psychiatric Psychiatric Exam: Anxious - Skin Skin Exam: Erythema MDM - Additional Information Additional Information Obtained From: Family - Differential Diagnosis Differential Diagnosis: LEFT SIDED WEAKNESS, ARTHRTIS, NE, PNEUMONIA Course - Treatment Treatment: SEE ORDERS. IM TORADOL AND NORFLEX IN ED - Reevaluation 1st: Improved - Education/Counseling Education/Counseling: Patient, Family, Education Educated On: Treatment, Diagnosis, Needs for Follow Up ROR - Labs Reviewed Laboratory Results Reviewed?: Yes Result Diagrams: 10/29/17 15:13 10/29/17 15:13 Laboratory: WBC 7.5 X10^3/uL (3.6-10.0) 10/29/17 15:13 RBC 4.27 X10^6/uL (4.7-6.0) L 10/29/17 15:13 Hgb 13.8 g/dL (13.5-18.0) 10/29/17 15:13 Hct 40.4 % (42.0-54.0) L 10/29/17 15:13 MCV 94.5 fL (80.0-100.0) 10/29/17 15:13 MCH 32.4 pg (27.0-34.0) 10/29/17 15:13 MCHC 34.2 g/dL (33.0-35.0) 10/29/17 15:13 RDW 13.7 % (11.6-16.5) 10/29/17 15:13 Plt Count 247 X10^3/uL (150.0-450.0) 10/29/17 15:13 MPV 8.8 fL (7.4-11.0) 10/29/17 15:13 Neut % 29.3 % (42.0-75.0) L 10/29/17 15:13 Lymph % 51.2 % (21.0-51.0) H 10/29/17 15:13 [place] % 9.0 % (0.0-13.0) 10/29/17 15:13 Eos % 9.4 % (0.9-2.9) H 10/29/17 15:13 Baso % 1.1 % (0.2-1.0) H 10/29/17 15:13 Neut # 2.2 x10^3/uL (2.2-4.8) 10/29/17 15:13 Lymph # 3.9 X10^3/uL (1.3-2.9) H 10/29/17 15:13 [place] # 0.7 x10^3/uL (0.3-0.8) 10/29/17 15:13 Eos # 0.7 x10^3/uL (0.0-0.2) H 10/29/17 15:13 Baso # 0.1 X10^3/uL (0.0-0.1) 10/29/17 15:13 Absolute Nucleated RBC 0.0 /100WBC 10/29/17 15:13 Sodium 140 mmol/L (136-145) 10/29/17 15:13 Corrected Sodium TNP 10/29/17 15:13 Potassium 3.5 mmol/L (3.5-5.1) 10/29/17 15:13 Chloride 105 mmol/L (98-107) 10/29/17 15:13 Carbon Dioxide 28.6 mmol/L (21-32) 10/29/17 15:13 BUN 10 mg/dL (7-18) 10/29/17 15:13 Creatinine 0.74 mg/dL (0.70-1.30) 10/29/17 15:13 Est GFR (MDRD) Af Amer > 60 (>60) 10/29/17 15:13 Est GFR (MDRD) Non-Af > 60 (>60) 10/29/17 15:13 Glucose 93 mg/dL (65-99) 10/29/17 15:13 Calcium 8.8 mg/dL (8.5-10.1) 10/29/17 15:13 Corrected Calcium 9.5 mg/dL (8.5-10.1) 10/29/17 15:13 Total Bilirubin 0.30 mg/dL (0.2-1.0) 10/29/17 15:13 AST 92 Units/L (15-37) H 10/29/17 15:13 ALT 145 Units/L (12-78) H 10/29/17 15:13 Alkaline Phosphatase 78 Units/L (46-116) 10/29/17 15:13 Creatine Kinase 457 Units/L (39-308) H 10/29/17 15:13 CK-MB (CK-2) 7.5 ng/mL (0-4.0) H* 10/29/17 15:13 CK/CKMB % Calc 1.6 % (<4) 10/29/17 15:13 Troponin I < 0.02 ng/mL (0-1.5) 10/29/17 15:13 Total Protein 7.7 g/dL (6.4-8.2) 10/29/17 15:13 Albumin 3.1 g/dL (3.4-5.0) L 10/29/17 15:13 Globulin 4.6 g/dL (2.5-4.5) H 10/29/17 15:13 Albumin/Globulin Ratio 0.7 Ratio (1.1-2.1) L 10/29/17 15:13 - XRAY XRAY Interpreted by: Radiologist XRAY Findings: REPORT DISCUSS WITH PATIENT - EKG Rhythm: NSR (EKG NOTED.) - Diagnosis Discharge Problem: Left-sided weakness, Arthritis, Chest pain, rule out acute myocardial infarction, Chronic pain of right hip Chronic back pain Qualifiers: Back pain location: low back pain Back pain laterality: left Sciatica presence : without sciatica Qualified Code(s): M54.5 - Low back pain; G89.29 - Other chronic pain; G89.29 - Other chronic pain - Discharge Plan Disposition: 01 HOME, SELF-CARE Condition: Stable Prescriptions: Cyclobenzaprine HCl [Flexeril] 5 mg PO BID PRN #20 tab PRN Reason: Muscle Spasms Meloxicam [Mobic Tab 15 mg] 15 mg PO DAILY #30 tab - Follow ups/Referrals Follow ups/Referrals: Leena AMBROSIO [Primary Care Provider] - 3 days - Instructions Instructions: Osteoarthritis, Joint Pain, [id number], Back Pain, Adult, Easy- to-Read Additional Instructions: RETURN TO ED IF WORSE.
[2017-10-29 15:22] LABS: BASOPHILS # (AUTO) 0.1 X10^3/uL (0.0-0.1); BASOPHILS % (AUTO) 1.1 % (0.2-1.0); EOSINOPHILS # (AUTO) 0.7 x10^3/uL (0.0-0.2); EOSINOPHILS % (AUTO) 9.4 % (0.9-2.9); HEMATOCRIT 40.4 % (42.0-54.0); HEMOGLOBIN 13.8 g/dL (13.5-18.0); LYMPHOCYTES # (AUTO) 3.9 X10^3/uL (1.3-2.9); LYMPHOCYTES % (AUTO) 51.2 % (21.0-51.0); MEAN CORPUSCULAR HEMOGLOBIN 32.4 pg (27.0-34.0); MEAN CORPUSCULAR HGB CONC 34.2 g/dL (33.0-35.0); MEAN CORPUSCULAR VOLUME 94.5 fL (80.0-100.0); MEAN PLATELET VOLUME 8.8 fL (7.4-11.0); MONOCYTES # (AUTO) 0.7 x10^3/uL (0.3-0.8); NEUTROPHILS # (AUTO) 2.2 x10^3/uL (2.2-4.8); NEUTROPHILS % (AUTO) 29.3 % (42.0-75.0); PLATELET COUNT 247 X10^3/uL (150.0-450.0); RED BLOOD COUNT 4.27 X10^6/uL (4.7-6.0); RED CELL DISTRIBUTION WIDTH 13.7 % (11.6-16.5); WHITE BLOOD COUNT 7.5 X10^3/uL (3.6-10.0)
[2017-10-29 15:40] LABS: BLOOD UREA NITROGEN 10 mg/dL (7-18); CALCIUM 8.8 mg/dL (8.5-10.1); CARBON DIOXIDE 28.6 mmol/L (21-32); CHLORIDE 105 mmol/L (98-107); CREATININE 0.74 mg/dL (0.70-1.30); SODIUM 140 mmol/L (136-145); TROPONIN I < 0.02 ng/mL (0-1.5); eGFR BLACK RACES > 60 (>60); eGFR NON BLACK RACES > 60 (>60)
[2017-10-29] MEDS ORDERED: TORADOL 60 MG VIAL IM ONE (15:52)
[2017-10-29] MEDS ORDERED: NORFLEX INJ IM ONE (15:52)
--- NOTE | 2017-10-29 15:53 | CT ---
HISTORY: Left-sided weakness Study: CT head without contrast Comparison: July 16, 2017 Technique: Multiple axial, coronal, and sagittal CT images of the head were reviewed without contrast . AEC was utilized. Findings: There is no mass, hemorrhage, midline shift, or abnormal extra-axial fluid collection. The ventricles are symmetrical in size and configuration. There is a background of mild subcortical and periventric ular white matter low attenuation compatible with chronic microvascular ischemic disease in a patient with appropriate risk factors. There are no findings to suggest an acute or subacute ischemic event, but if there is high clinical suspicion, MRI would be recommended. Chronic ethmoid sinus mucosal thi ckening is noted. IMPRESSION: Chronic changes as above without definite acute intracranial process. Reported By:
[2017-10-29] MEDS ORDERED: FLEXERIL TAB 10 MG PO PRN (15:55)
[2017-10-29] MEDS ORDERED: TORADOL 60 MG VIAL ONE (15:56)
[2017-10-29] MEDS ORDERED: NORFLEX INJ ONE (15:56)
[2017-10-29 16:03] LABS: ALANINE AMINOTRANSFERASE 145 Units/L (12-78); ALBUMIN 3.1 g/dL (3.4-5.0); ALKALINE PHOSPHATASE 78 Units/L (46-116); ASPARTATE AMINO TRANSFERASE 92 Units/L (15-37); CKMB % 1.6 % (<4); COR CA(FOR HYPOALB) 9.5 mg/dL (8.5-10.1); CREATINE KINASE 457 Units/L (39-308); TOTAL PROTEIN 7.7 g/dL (6.4-8.2)
[2017-10-29 16:06] LABS: CREATINE KINASE MB 7.5 ng/mL (0-4.0)
[2017-10-30] MEDS ORDERED: MOBIC TAB 15 MG PO SCH (09:00)
== END 2017-10-29 16:19 | disposition home or self-care (01) ==
LOC: ER 14:29
DX: R53.1 Weakness (principal); M19.90 Unspecified osteoarthritis, unspecified site; R07.89 Other chest pain; M25.551 Pain in right hip; M54.5 Low back pain; G89.29 Other chronic pain; R94.31 Abnormal electrocardiogram [ECG] [EKG]
CPT/HCPCS: 36415; 70450; 80053; 82550; 82553; 84484; 85025; 93005; 93010; 96372; 99282; 99283; 99285; J1885; J2360

== ENCOUNTER → 2017-11-20 | Outpatient (CLI) | payer OTHER, MEDICAID ==
[2017-10-29 14:26] VITALS: BP 134/95
--- NOTE | 2017-11-20 16:06 | RAD ---
History: Right hip pain Study: AP pelvis and frog-leg right hip Comparison: May 16, 2016 Findings: There is no interval change. There is no evidence for fracture. There is mild joint space n arrowings superiorly with minimal osteophyte formation. There is severe degenerative changes in the v isualized lower lumbar disc spaces. Impression: 1. No acute disease of the hips. Mild degenerative arthritis. 2. Severe lower lumbar degenerative disc disease Reported By:
== END | disposition home or self-care (01) | DRG 556 ==
LOC: RAD 15:36
PROVIDERS: ATTEND Internal Medicine Rheumatology
DX: M25.551 Pain in right hip (principal); M51.36 Other intervertebral disc degeneration, lumbar region
CPT/HCPCS: 73501

== ENCOUNTER 2017-11-24 10:28 | Emergency (ER) | payer OTHER, MEDICAID ==
[2017-11-24 10:33] VITALS: BMI 20.3
[2017-11-24 10:34] VITALS: BP 118/74
[2017-11-24] MEDS ORDERED: NORFLEX INJ IM ONE (11:00)
[2017-11-24] MEDS ORDERED: TORADOL 60 MG VIAL IM ONE (11:00)
--- NOTE | 2017-11-24 11:02 | DR.MBACK ---
HPI - Time Seen Time seen: 11:50 - PCP Primary Care Physician: HEBERT - HPI Comment HPI Comment: HISTORY BELOW. - Complaint Chief Complaint Doctors Comments: BILATERAL HIP PAIN, ACUTE FLARE UP. OUT OF MEDICATION AT HOME. NO FEVER OR TRAUMA. Chief Complaint:: PT. C/O CHRONIC LOWER BACK PAIN. PAIN BEGAN LAST WEEK. - Reviewed Nurses Notes Review: Yes - Source History Provided: Patient - Mode of Arrival Mode of Arrival: Ambulatory - Timing Onset of Chief Complaint: 11/17/17 - Duration Duration: Constant Duration: Days - Location Back Pain Location: BACK, Lumbar Radiation To: Buttock (HIPS) - Severity Severity: Moderate - Quality Quality: Aching, Sharp - Context Onset: Spontaneous History of: Chronic Back Pain - Modifying Factors Worsened By: Walking - Associated Signs and Symptoms Back Pain Symptoms: None Numbness: None Weakness: None PMH - PMH Past Medical History: Yes Past Medical History: Arthritis, Hypertension Past Surgical History: Yes Surgical History: CABG/Valve Surgery, Ortho Surgery - Family History History of Family Medical Conditions: Yes Family Medical History: Diabetes Mellitus, Cancer, Hypertension - Social History Does patient currently use any type of tobacco product: Yes Have you used tobacco products in the last 12 months: Yes Type of Tobacco Use: Cigarettes Does any household member use tobacco: No Alcohol Use: None Do you use any recreational Drugs:: No Lives With: Alone Lives Where: Home - infectious screening In the last 2 months have you had wt loss of >10#?: NO Have you had fever, night sweats or hemotysis?: No Have you traveled outside the country in the last 6 months?: No Isolation: Standard ROS - Review of Systems Constitutional: No Symptoms Reported, Other (CHRONIC WALKING DIFFICULTY, USES CANE.). negative: Chills, Fever, Weakness, Fatigue Eyes: No Symptoms Reported ENTM: No Symptoms Reported Respiratoy: No Symptoms Reported Cardiovascular: No Symptoms Reported Gastrointestinal/Abdominal: No Symptoms Reported Genitourinary: No Symptoms Reported Neurological: Problems Walking (WALK WITH CANE.) Musculoskeletal: Muscle Pain Integumentary: Dryness Hematologic/Lymphatic: No Symptoms Reported Endocrine: No Symptoms Reported All Other Systems: Reviewed and Negative PE - Vital Signs Vitals: Temperature 97 F Pulse Rate 87 Respiratory Rate 17 Blood Pressure [Right Arm] 133/90 Blood Pressure 118/74 O2 Sat by Pulse Oximetry 99 - General Limitations: No Limitations General Appearance: Alert - Head Head Exam: Normal Inspection - Eyes Eye exam: Normal Appearance - ENT ENT Exam: Normal External Ear Exam - Chest Chest Inspection: Symmetric Chest Wall Rise - Respiratory Respiratory Exam: Normal Lung Sounds Bilat Respiratory Exam: Bilateral Clear to Auscultation - Cardiovascular Cardiovascular Exam: Regular Rate, Normal Rhythm, Normal Heart Sounds - Abdominal Exam Abdominal Exam: Normal Bowel Sounds, Soft. negative: Tenderness - Rectal Rectal Exam: Deferred - Genitourinary Exam: Male: Deferred - Extremities Extremities Exam: Tenderness (BILATERRAL HIP TENDERNESS.) - Back Back Exam: Paraspinal Tenderness, Vertebral Tenderness (LUMBAR SPINE TENDERNESS) - Neurological Neurological Exam: Alert, Oriented X3 - Psychiatric Psychiatric Exam: Normal Affect, Normal Mood - Skin Skin Exam: Normal Color MDM - Additional Information Additional Information Obtained From: Family - Differential Diagnosis Differential Diagnosis: DJD, Musculoskeletal Pain, Strain (ARTHRITIS) Course - Treatment Treatment: SEE ORDERS. - Education/Counseling Education/Counseling: Patient, Family Educated On: Treatment, Needs for Follow Up - Diagnosis Discharge Problem: Arthritis Degenerative joint disease (DJD) of hip Qualifiers: Osteoarthritis type: unspecified Laterality: bilateral Qualified Code(s): M16.0 - Bilateral primary osteoarthritis of hip Chronic back pain Qualifiers: Back pain location: low back pain Back pain laterality: bilateral Sciatica presence: with sciatica Sciatica laterality: bilateral sciatica Qualified Code(s ): M54.42 - Lumbago with sciatica, left side - Discharge Plan Disposition: 01 HOME, SELF-CARE Condition: Stable Prescriptions: Cyclobenzaprine HCl [FLEXERIL 10 MG *] 10 mg PO TID PRN #20 tab PRN Reason: Meloxicam [Mobic Tab 15 mg] 15 mg PO DAILY #30 tab - Follow ups/Referrals Follow ups/Referrals: Leena AMBROSIO [Primary Care Provider] - 3 days - Instructions Instructions: Hip Pain, Arthritis, [id number], Back Pain, Adult, [id number] Additional Instructions: RETURN TO ED IF WORSE.
[2017-11-24] MEDS ORDERED: TORADOL 60 MG VIAL ONE (11:04)
[2017-11-24] MEDS ORDERED: NORFLEX INJ ONE (11:04)
== END 2017-11-24 11:38 | disposition home or self-care (01) ==
LOC: ER 10:35
DX: M19.90 Unspecified osteoarthritis, unspecified site (principal); M16.0 Bilateral primary osteoarthritis of hip; M54.42 Lumbago with sciatica, left side
CPT/HCPCS: 96372; 99282; J1885; J2360

== ENCOUNTER 2017-12-07 13:49 | Emergency (ER) | payer OTHER, MEDICAID ==
[2017-12-07 13:58] VITALS: BMI 19.5
--- NOTE | 2017-12-07 14:03 | DR.MBACK ---
HPI - Time Seen Time seen: 14:08 - PCP Primary Care Physician: HEBERT MELÉNDEZ - Complaint Chief Complaint:: PT C/O BACK PAIN AND THAT HE NEEDS A SHOT ,,BR Self Treatment fo Chief Complaint: PT C/O I HELPED A WOMEN UP AND I THINK I PULLED SOMETHING ,,, PT IS USING A CANE,,BR - Source History Provided: Patient - Mode of Arrival Mode of Arrival: Ambulatory - Timing Onset of Chief Complaint: 12/06/17 - Location Back Pain Location: BACK - Associated Signs and Symptoms Back Pain Symptoms: None Numbness: None Weakness: None PMH - PMH Past Medical History: Yes Past Medical History: Arthritis, Hypertension Past Surgical History: Yes Surgical History: CABG/Valve Surgery, Ortho Surgery - Family History History of Family Medical Conditions: Yes Family Medical History: Diabetes Mellitus, Cancer, Hypertension - Social History Does patient currently use any type of tobacco product: Yes Have you used tobacco products in the last 12 months: Yes Type of Tobacco Use: Cigarettes Does any household member use tobacco: Yes Alcohol Use: None Do you use any recreational Drugs:: No Lives With: Family Lives Where: Home - infectious screening In the last 2 months have you had wt loss of >10#?: NO Have you had fever, night sweats or hemotysis?: No Have you traveled outside the country in the last 6 months?: No Isolation: Standard ROS - Review of Systems Constitutional: No Symptoms Reported Eyes: No Symptoms Reported ENTM: No Symptoms Reported Respiratoy: No Symptoms Reported Cardiovascular: No Symptoms Reported Gastrointestinal/Abdominal: No Symptoms Reported Genitourinary: No Symptoms Reported Neurological: No Symptoms Reported Musculoskeletal: Back Pain Integumentary: No Symptoms Reported Hematologic/Lymphatic: No Symptoms Reported Endocrine: No Symptoms Reported Psychiatric: No Symptoms Reported All Other Systems: Reviewed and Negative PE - Vital Signs Vitals: Temperature 97.7 F Pulse Rate 79 Respiratory Rate 18 Blood Pressure [Right Arm] 133/90 Blood Pressure 142/97 O2 Sat by Pulse Oximetry 99 - General Limitations: No Limitations General Appearance: Alert, In No Apparent Distress - Head Head Exam: Normal Inspection - Eyes Eye exam: Normal Appearance - ENT ENT Exam: Normal Exam - Chest Chest Inspection: Normal Inspection - Respiratory Respiratory Exam: Normal Lung Sounds Bilat - Cardiovascular Cardiovascular Exam: Regular Rate, Normal Rhythm - Abdominal Exam Abdominal Exam: Normal Inspection, Normal Bowel Sounds, Soft - Rectal Rectal Exam: Deferred - Genitourinary Exam: Male: Deferred - Extremities Extremities Exam: Normal Inspection - Back Back Exam: Normal Inspection, Tenderness, (R) Sciatic Notch Tenderness - Neurological Neurological Exam: Alert, Oriented X3, CN II-XII Intact - Psychiatric Psychiatric Exam: Normal Affect - Skin Skin Exam: Warm, Dry, Intact, Normal Color - Diagnosis Discharge Problem: Acute exacerbation of chronic low back pain - Discharge Plan Disposition: HOME, SELF-CARE Condition: Stable - Follow ups/Referrals Follow ups/Referrals: Leena AMBROSIO [Primary Care Provider] - 3 days - Instructions Instructions: Back Pain, Adult
[2017-12-07 14:11] VITALS: BP 142/97
[2017-12-07] MEDS ORDERED: TORADOL 30 MG VIAL IM ONE (14:11)
[2017-12-07] MEDS ORDERED: TORADOL 30 MG VIAL ONE (14:12)
== END 2017-12-07 14:47 | disposition home or self-care (01) ==
LOC: ER 14:01
DX: M54.5 Low back pain (principal)
CPT/HCPCS: 96372; 99282; J1885

== ENCOUNTER 2017-12-14 13:57 | Emergency (ER) | payer OTHER, MEDICAID ==
[2017-12-14 14:08] VITALS: BP 112/83; BMI 20.9
--- NOTE | 2017-12-14 16:48 | DR.GENAD ---
HPI - PCP Primary Care Physician: DR. AMBROSIO - HPI Comment HPI Comment: GETTING WORSE. PATIENT SAID ROOM IS SPINNING. NO FEVER OR DYSURIA. - Complaint/Symptoms Chief Complaint Doctors Comments: DIZZINESS, ATAXIA TIMES ONE DAY. Chief Complaint:: PT STATES "I AIN'T FELT RIGHT, I GOT TO FEELING LEONARD ON THE DIZZY SIDE." Self Treatment fo Chief Complaint: "I KNOW WHAT I'M DOING BUT I JUST DON'T FEEL RIGHT. I WENT HOME AND DRANK ME SOME VODKA-CHAMPAGNE. I FELT FUNNY THE WHOLE DAY. I FELL YESTERDAY MORNING." - Nurses notes reviewed Nurses Notes Review: Yes - Source History Provided: Patient - Mode of Arrival Mode of Arrival: Ambulatory - Timing Onset of Chief Complaint: 12/13/17 Came on: Suddenly - Duration Duration: Constant Duration: Days - Severity Severity: Moderate PMH - PMH Past Medical History: Yes Past Medical History: Arthritis, Hypertension Past Surgical History: Yes Surgical History: Ortho Surgery - Family History History of Family Medical Conditions: Yes Family Medical History: Diabetes Mellitus, Hypertension - Social History Does patient currently use any type of tobacco product: Yes Have you used tobacco products in the last 12 months: Yes Type of Tobacco Use: Cigarettes How many years tobacco product used: 47 Does any household member use tobacco: Yes Alcohol Use: DAILY Do you use any recreational Drugs:: No Lives With: Family Lives Where: Home - infectious screening Have you traveled outside the country in the last 6 months?: No Isolation: Standard ROS - Review of Systems Constitutional: Weakness, Fatigue. negative: Chills, Fever, Loss of Appetite Eyes: No Symptoms Reported. negative: Eye Pain, Blurred Vision, Tearing, Discharge, Photophobia ENTM: negative: Ear Pain, Nose Discharge, Nose Congestion, Throat Pain Respiratoy: Non-Productive Cough. negative: Short of Breath, Wheezing, Hemoptysis Cardiovascular: negative: Chest Pain Gastrointestinal/Abdominal: negative: Abdominal Pain Genitourinary: No Symptoms Reported. negative: Dysuria, Frequency, Hematuria Neurological: Headache, Weakness, Dizziness Musculoskeletal: Muscle Pain, Other (WALK WITH CANE, MUSCLE WEAKNESS.) Integumentary: Change in Color Hematologic/Lymphatic: Anemia Endocrine: No Symptoms Reported All Other Systems: Reviewed and Negative PE - Vital Signs Vitals: Temperature 97.4 F Pulse Rate 89 Respiratory Rate 20 Blood Pressure [Right Arm] 133/90 Blood Pressure 112/83 O2 Sat by Pulse Oximetry 95 - General Limitations: No Limitations General Appearance: Alert - Head Head Exam: Normal Inspection - Eyes Eye exam: Normal Appearance - ENT ENT Exam: Normal External Ear Exam External Ear Exam: Normal External Inspection TM/Canal Exam: Bilateral Normal Nose Exam: Normal Nose Exam Mouth Exam: Normal Inspection Throat Exam: Normal Inspection - Neck Neck Exam: Trachea Midline - Chest Chest Inspection: Symmetric Chest Wall Rise - Respiratory Respiratory Exam: Normal Lung Sounds Bilat Respiratory Exam: Bilateral Rhonchi, Lower Rhonchi - Cardiovascular Cardiovascular Exam: Regular Rate, Normal Rhythm, Normal Heart Sounds - Abdominal Exam Abdominal Exam: Normal Bowel Sounds, Soft - Extremities Extremities Exam: Tenderness - Back Back Exam: Tenderness (L), Paraspinal Tenderness (LOWER BACK TENSE MUSCLES.) - Neurologic Neurological Exam: Alert, Oriented X3 - Psychiatric Psychiatric Exam: Normal Affect, Normal Mood - Skin Skin Exam: Dry, Erythema MDM - Differential Diagnosis Differential Diagnosis: VERTIGO, DIZZINESS, CVA, TIA, SINUSITIS Course - Treatment Treatment: SEE ORDERS. - Education/Counseling Education/Counseling: Patient, Education Educated On: Diagnosis, Needs for Follow Up ROR - Labs Reviewed Laboratory Results Reviewed?: Yes Result Diagrams: 12/14/17 17:03 12/14/17 17:03 Laboratory: WBC 7.5 X10^3/uL (3.6-10.0) 12/14/17 17:03 RBC 4.25 X10^6/uL (4.7-6.0) L 12/14/17 17:03 Hgb 13.8 g/dL (13.5-18.0) 12/14/17 17:03 Hct 39.9 % (42.0-54.0) L 12/14/17 17:03 MCV 93.8 fL (80.0-100.0) 12/14/17 17:03 MCH 32.4 pg (27.0-34.0) 12/14/17 17:03 MCHC 34.5 g/dL (33.0-35.0) 12/14/17 17:03 RDW 13.9 % (11.6-16.5) 12/14/17 17:03 Plt Count 268 X10^3/uL (150.0-450.0) 12/14/17 17:03 MPV 9.0 fL (7.4-11.0) 12/14/17 17:03 Neut % (Auto) 31.1 % (42.0-75.0) L 12/14/17 17:03 Lymph % (Auto) 52.4 % (21.0-51.0) H 12/14/17 17:03 [place]pine % (Auto) 7.6 % (0.0-13.0) 12/14/17 17:03 Eos % (Auto) 7.9 % (0.9-2.9) H 12/14/17 17:03 Baso % (Auto) 1.0 % (0.2-1.0) 12/14/17 17:03 Neut # (Auto) 2.3 x10^3/uL (2.2-4.8) 12/14/17 17:03 Lymph # (Auto) 3.9 X10^3/uL (1.3-2.9) H 12/14/17 17:03 [place]pine # (Auto) 0.6 x10^3/uL (0.3-0.8) 12/14/17 17:03 Eos # (Auto) 0.6 x10^3/uL (0.0-0.2) H 12/14/17 17:03 Baso # (Auto) 0.1 X10^3/uL (0.0-0.1) 12/14/17 17:03 Absolute Nucleated RBC 0.1 /100WBC 12/14/17 17:03 Sodium 139 mmol/L (136-145) 12/14/17 17:03 Corrected Sodium TNP 12/14/17 17:03 Potassium 3.7 mmol/L (3.5-5.1) 12/14/17 17:03 Chloride 103 mmol/L (98-107) 12/14/17 17:03 Carbon Dioxide 29.8 mmol/L (21-32) 12/14/17 17:03 BUN 16 mg/dL (7-18) 12/14/17 17:03 Creatinine 0.81 mg/dL (0.70-1.30) 12/14/17 17:03 Est GFR (MDRD) Af Amer > 60 (>60) 12/14/17 17:03 Est GFR (MDRD) Non-Af > 60 (>60) 12/14/17 17:03 Glucose 96 mg/dL (65-99) 12/14/17 17:03 Calcium 8.6 mg/dL (8.5-10.1) 12/14/17 17:03 Corrected Calcium 9.2 mg/dL (8.5-10.1) 12/14/17 17:03 Total Bilirubin 0.40 mg/dL (0.2-1.0) 12/14/17 17:03 AST 81 Units/L (15-37) H 12/14/17 17:03 ALT 139 Units/L (12-78) H 12/14/17 17:03 Alkaline Phosphatase 82 Units/L (46-116) 12/14/17 17:03 Creatine Kinase 269 Units/L (39-308) 12/14/17 17:03 CK-MB (CK-2) 5.5 ng/mL (0-4.0) H* 12/14/17 17:03 CK/CKMB % Calc 2.0 % (<4) 12/14/17 17:03 Troponin I < 0.02 ng/mL (0-1.5) 12/14/17 17:03 Total Protein 7.7 g/dL (6.4-8.2) 12/14/17 17:03 Albumin 3.2 g/dL (3.4-5.0) L 12/14/17 17:03 Globulin 4.5 g/dL (2.5-4.5) 12/14/17 17:03 Albumin/Globulin Ratio 0.7 Ratio (1.1-2.1) L 12/14/17 17:03 - XRAY XRAY Interpreted by: Radiologist XRAY Findings: REPORT DISCUSS WITH PATIENT. - EKG Rhythm: NSR (EKG NOTED) - Diagnosis Discharge Problem: Vertigo, Dizziness - Discharge Plan Disposition: 01 HOME, SELF-CARE Condition: Stable Prescriptions: Meclizine HCl 25 mg PO TID PRN #30 tab PRN Reason: Dizziness - Follow ups/Referrals Follow ups/Referrals: Leena AMBROSIO [Primary Care Provider] - 12/15/17 - Instructions Instructions: Vertigo, [id number], Dizziness, [id number] Additional Instructions: RETURN TO ED IF WORSE.
--- NOTE | 2017-12-14 17:00 | RAD ---
HISTORY: Shortness of breath. Study: Portable chest. Comparison: Chest x-ray dated July 16, 2017. Findings: The trachea is midline. The cardiac silhouette is unremarkable. Left basilar atelectasis versus sca rring. No obvious focal consolidation, pleural effusion, or pneumothorax. The bony thorax is unremar kable. IMPRESSION: No acute cardiopulmonary disease. Reported By:
[2017-12-14 17:14] LABS: BASOPHILS # (AUTO) 0.1 X10^3/uL (0.0-0.1); EOSINOPHILS # (AUTO) 0.6 x10^3/uL (0.0-0.2); EOSINOPHILS % (AUTO) 7.9 % (0.9-2.9); HEMATOCRIT 39.9 % (42.0-54.0); HEMOGLOBIN 13.8 g/dL (13.5-18.0); LYMPHOCYTES # (AUTO) 3.9 X10^3/uL (1.3-2.9); LYMPHOCYTES % (AUTO) 52.4 % (21.0-51.0); MEAN CORPUSCULAR HEMOGLOBIN 32.4 pg (27.0-34.0); MEAN CORPUSCULAR HGB CONC 34.5 g/dL (33.0-35.0); MEAN CORPUSCULAR VOLUME 93.8 fL (80.0-100.0); MONOCYTES # (AUTO) 0.6 x10^3/uL (0.3-0.8); MONOCYTES % (AUTO) 7.6 % (0.0-13.0); NEUTROPHILS # (AUTO) 2.3 x10^3/uL (2.2-4.8); NEUTROPHILS % (AUTO) 31.1 % (42.0-75.0); PLATELET COUNT 268 X10^3/uL (150.0-450.0); RED BLOOD COUNT 4.25 X10^6/uL (4.7-6.0); RED CELL DISTRIBUTION WIDTH 13.9 % (11.6-16.5); WHITE BLOOD COUNT 7.5 X10^3/uL (3.6-10.0)
[2017-12-14 17:29] LABS: BLOOD UREA NITROGEN 16 mg/dL (7-18); CALCIUM 8.6 mg/dL (8.5-10.1); CARBON DIOXIDE 29.8 mmol/L (21-32); CHLORIDE 103 mmol/L (98-107); CREATININE 0.81 mg/dL (0.70-1.30); SODIUM 139 mmol/L (136-145); TROPONIN I < 0.02 ng/mL (0-1.5); eGFR BLACK RACES > 60 (>60); eGFR NON BLACK RACES > 60 (>60)
--- NOTE | 2017-12-14 17:43 | CT ---
CT HEAD WITHOUT CONTRAST CLINICAL HISTORY: 62-year-old male feeling dizzy with ataxia. COMPARISON: CT head 10/29/2017. TECHNIQUE: Multiple, non-contrasted axial CT images were obtained from the skull base to the cranial vertex. Coronal and sagittal reformats were performed. FINDINGS: There are no abnormal intra- or extra-axial fluid collections, midline shift, or mass effec t. Caballero-white differentiation is normal. Global cortical involutional changes are present that are ad vanced for the patient's stated age. The ventricular system is mildly enlarged but commensurate with the degree of sulcal prominence. Periventricular and supraventricular white matter hypodensity is pre sent that is nonspecific in appearance, but most likely to represent microvascular ischemic changes. Atherosclerotic vascular calcification is present within the carotid siphons and distal vertebral art eries. Scattered mucosal thickening of the ethmoid labyrinth. The remaining paranasal sinuses, mastoid air c ells, and tympanic spaces are clear. IMPRESSION: 1. No definite evidence of an acute intracranial process. If clinical concern persists for acute stro ke, consider MRI/MRA brain. 2. Severe microvascular white matter ischemic changes, with associated volume loss. Reported By:
[2017-12-14 17:53] LABS: ALANINE AMINOTRANSFERASE 139 Units/L (12-78); ALBUMIN 3.2 g/dL (3.4-5.0); ALKALINE PHOSPHATASE 82 Units/L (46-116); ASPARTATE AMINO TRANSFERASE 81 Units/L (15-37); COR CA(FOR HYPOALB) 9.2 mg/dL (8.5-10.1); CREATINE KINASE 269 Units/L (39-308); TOTAL PROTEIN 7.7 g/dL (6.4-8.2)
[2017-12-14 17:56] LABS: CREATINE KINASE MB 5.5 ng/mL (0-4.0)
[2017-12-14] MEDS ORDERED: ANTIVERT TAB 25 MG PO ONE (18:02)
[2017-12-14] MEDS ORDERED: ANTIVERT TAB 25 MG ONE (18:06)
== END 2017-12-14 18:15 | disposition home or self-care (01) ==
LOC: ER 14:11
DX: R42 Dizziness and giddiness (principal); R51 Headache; R94.31 Abnormal electrocardiogram [ECG] [EKG]
CPT/HCPCS: 36415; 70450; 71045; 80053; 82550; 82553; 84484; 85025; 93005; 93010; 99282; 99283

== ENCOUNTER 2017-12-24 08:06 | Emergency (ER) | payer OTHER, MEDICAID ==
[2017-12-24 08:11] VITALS: BP 111/83; BMI 20.9
--- NOTE | 2017-12-24 08:28 | DR.EXTPAIN ---
HPI - Time seen Time seen: 08:23 - PCP Primary Care Physician: bao - Complaint/Symptoms Chief Complaint Doctor Comments: Patient presents with complaint that foot (rt) feels wet and his great toe on the next toe. He denies pain. Chief Complaint:: patient stated his feet has been swelling and felling knumb for a pretty good while. - Source History Provided: Patient - Mode of arrival Mode of Arrival: Ambulatory - Timing Onset of Chief Complaint: 10/30/17 PMH - PMH Past Medical History: Yes Past Medical History: Arthritis, Hypertension Past Surgical History: Yes Surgical History: Ortho Surgery - Family History History of Family Medical Conditions: Yes Family Medical History: Diabetes Mellitus, Hypertension - Social History Does patient currently use any type of tobacco product: Yes Have you used tobacco products in the last 12 months: Yes Type of Tobacco Use: Cigarettes How many years tobacco product used: 40 Does any household member use tobacco: No Alcohol Use: Occasionally Do you use any recreational Drugs:: No Lives With: Alone Lives Where: Home - infectious screening In the last 2 months have you had wt loss of >10#?: NO Have you had fever, night sweats or hemotysis?: No Have you traveled outside the country in the last 6 months?: No Isolation: Standard ROS - Review of Systems Eyes: No Symptoms Reported ENTM: No Symptoms Reported Respiratoy: No Symptoms Reported Cardiovascular: No Symptoms Reported Gastrointestinal/Abdominal: No Symptoms Reported Genitourinary: No Symptoms Reported Neurological: No Symptoms Reported Musculoskeletal: Foot (right feels wet) Integumentary: No Symptoms Reported Hematologic/Lymphatic: No Symptoms Reported Psychiatric: No Symptoms Reported All Other Systems: Reviewed and Negative PE - Vital Signs Vitals: Temperature 98.7 F Pulse Rate 96 Respiratory Rate 18 Blood Pressure [Right Arm] 133/90 Blood Pressure 111/83 O2 Sat by Pulse Oximetry 98 - General Limitations: No Limitations General Appearance: Alert, In No Apparent Distress - Head Head Exam: Normal Inspection, Atraumatic - Eyes Eye exam: Normal Appearance, PERRL, EOMI - ENT ENT Exam: Normal Exam - Neck Neck Exam: Normal Inspection, Full ROM - Chest Chest Inspection: Normal Inspection, Symmetric Chest Wall Rise - Respiratory Respiratory Exam: Normal Lung Sounds Bilat Respiratory Exam: Bilateral Clear to Auscultation - Cardiovascular Cardiovascular Exam: Regular Rate - Abdominal Exam Abdominal Exam: Normal Inspection Abdominal Tenderness: negative: RUQ, RLQ, LUQ, LLQ, Epigastrium, Suprapubic, Diffuse, Mild, Moderate, Severe, Other - Extremities Extremities Exam: Normal Inspection, Full ROM, Normal Capillary Refill, Other ( valgus deformity of right great toe.). negative: Tenderness, Edema, Joint Swelling - Upper Extremities Shoulder Exam: Normal Inspection Arm Exam: Normal Inspection Elbow Exam: Normal Inspection Forearm Exam: Normal Inspection Hand Exam: Normal Inspection Neuromotor Exam: Normal Exam Neurosensory Exam: Normal Exam Hand Tendon Exam: Flexor Digitorium Profundus (Location) Upper Ext. Vascular Exam: Capillary Refill - Back Back Exam: Normal Inspection, Muscle Spasm - Psychiatric Psychiatric Exam: Normal Affect, Normal Mood - Skin Skin Exam: Warm, Dry, Intact - Diagnosis Discharge Problem: Valgus deformity of great toe Qualifiers: Laterality: right Qualified Code(s): M20.11 - Hallux valgus (acquired), right foot - Discharge Plan Condition: Stable - Follow ups/Referrals Follow ups/Referrals: Leena AMBROSIO [Primary Care Provider] - 3 days - Instructions
== END 2017-12-24 08:38 | disposition home or self-care (01) ==
LOC: ER 08:15
DX: M20.11 Hallux valgus (acquired), right foot (principal)
CPT/HCPCS: 99281; 99282

== ENCOUNTER 2018-01-05 15:16 | Emergency (ER) | payer OTHER, MEDICAID ==
[2018-01-05 15:20] VITALS: BP 113/76; BMI 21.1
[2018-01-05] MEDS ORDERED: DEMEROL INJ IM ONE (16:30)
[2018-01-05] MEDS ORDERED: DEMEROL INJ ONE (16:45)
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
== END 2018-01-05 18:16 | disposition home or self-care (01) ==
LOC: ER 15:25
DX: M19.90 Unspecified osteoarthritis, unspecified site (principal); W19.XXXA Unspecified fall, initial encounter
CPT/HCPCS: 72100; 96372; 99282; 99283; J2175

== ENCOUNTER 2018-01-06 09:13 | Emergency (ER) | payer OTHER, MEDICAID ==
[2018-01-06 09:19] VITALS: BP 116/78; BMI 20.5
--- NOTE | 2018-01-06 10:20 | DR.GENAD ---
HPI - PCP Primary Care Physician: HEBERT - HPI Comment HPI Comment: PATIENT WEAK AND DRAIN OF ENERGY. WORSE TODAY. DIARRHEA WORSE TODAY WELL. NO FEVER OR DYSURIA. CHRONIC BACK PAIN WORSE SINCE FALL. - Complaint/Symptoms Chief Complaint Doctors Comments: ABDOMINAL PAIN, N/V/D SINCE LAST NIGHT. GENERALIZE WEAKNESS.FELL FRIDAY. Chief Complaint:: PT. C/O N/V/D & ABDOMINAL PAIN WHICH BEGAN LAST NIGHT. HE STATES EVERYTHING HE ATE WENT RIGHT THROUGH HIM. PT. STATES "I'M WEAK." PT. WAS IN THE ER YESTERDAY FOR C/O LOWER BACK PAIN S/P FALL WHICH OCCURED ON FRIDAY. - Nurses notes reviewed Nurses Notes Review: Yes - Source History Provided: Patient - Mode of Arrival Mode of Arrival: Ambulatory - Timing Onset of Chief Complaint: 01/05/18 Came on: Suddenly - Duration Duration: Constant Duration: Days - Severity Severity: Moderate PMH - PMH Past Medical History: Yes Past Medical History: Arthritis, Hypertension Past Surgical History: Yes Surgical History: Ortho Surgery - Family History History of Family Medical Conditions: Yes Family Medical History: Diabetes Mellitus, Hypertension - Social History Does patient currently use any type of tobacco product: Yes Have you used tobacco products in the last 12 months: Yes Type of Tobacco Use: Cigarettes Does any household member use tobacco: No Alcohol Use: None Do you use any recreational Drugs:: No Lives With: Alone Lives Where: Home - infectious screening In the last 2 months have you had wt loss of >10#?: NO Have you had fever, night sweats or hemotysis?: No Have you traveled outside the country in the last 6 months?: No Isolation: Standard ROS - Review of Systems Constitutional: Weakness, Fatigue Eyes: negative: Eye Pain, Discharge ENTM: negative: Ear Pain, Nose Discharge, Nose Congestion, Throat Pain Respiratoy: Short of Breath (ON EXERSION). negative: Productive Cough, Non- Productive Cough, Wheezing, Hemoptysis Cardiovascular: No Symptoms Reported Gastrointestinal/Abdominal: Abdominal Pain, Diarrhea, Nausea, Vomiting Genitourinary: negative: Dysuria, Hematuria Neurological: Weakness, Dizziness. negative: Headache Musculoskeletal: Back Pain, Back Integumentary: No Symptoms Reported Hematologic/Lymphatic: Easy Bleeding, Easy Bruising Endocrine: No Symptoms Reported All Other Systems: Reviewed and Negative PE - Vital Signs Vitals: Temperature 97.9 F Pulse Rate 123 Respiratory Rate 22 Blood Pressure [Right Arm] 133/90 Blood Pressure 116/78 O2 Sat by Pulse Oximetry 97 - General Limitations: No Limitations General Appearance: Alert - Head Head Exam: Normal Inspection - Eyes Eye exam: Normal Appearance - ENT ENT Exam: Normal External Ear Exam External Ear Exam: Normal External Inspection TM/Canal Exam: Bilateral Normal Nose Exam: Normal Nose Exam Mouth Exam: Normal Inspection Throat Exam: Normal Inspection - Neck Neck Exam: Trachea Midline - Chest Chest Inspection: Symmetric Chest Wall Rise - Respiratory Respiratory Exam: Normal Lung Sounds Bilat Respiratory Exam: Bilateral Rhonchi, Upper Rhonchi, Lower Rhonchi - Cardiovascular Cardiovascular Exam: Regular Rate, Normal Rhythm, Normal Heart Sounds - Abdominal Exam Abdominal Exam: Normal Bowel Sounds, Soft, Tenderness Abdominal Tenderness: Diffuse, Moderate - Extremities Extremities Exam: Normal Inspection - Back Back Exam: Paraspinal Tenderness - Neurologic Neurological Exam: Alert, Oriented X3 - Psychiatric Psychiatric Exam: Normal Affect, Normal Mood - Skin Skin Exam: Dry MDM - Differential Diagnosis Differential Diagnosis: ABDOMINAL PAIN DIARRHEA, GASTROENTERITIS, DEHYDRATION, BOWEL OBSTRUCTION Course - Treatment Treatment: SEE ORDERS. IV NS AND LOMOTIL PO IN ED. - Reevaluation 1st: Improved - Education/Counseling Education/Counseling: Patient, Education Educated On: Diagnosis ROR - Labs Reviewed Laboratory Results Reviewed?: Yes Result Diagrams: 01/06/18 10:30 01/06/18 10:30 Laboratory: 01/06/18 12:30 Stool - Final WBC 10.1 X10^3/uL (3.6-10.0) H 01/06/18 10:30 RBC 4.47 X10^6/uL (4.7-6.0) L 01/06/18 10:30 Hgb 14.3 g/dL (13.5-18.0) 01/06/18 10:30 Hct 40.6 % (42.0-54.0) L 01/06/18 10:30 MCV 90.9 fL (80.0-100.0) 01/06/18 10:30 MCH 31.9 pg (27.0-34.0) 01/06/18 10:30 MCHC 35.1 g/dL (33.0-35.0) H 01/06/18 10:30 RDW 13.7 % (11.6-16.5) 01/06/18 10:30 Plt Count 252 X10^3/uL (150.0-450.0) 01/06/18 10:30 MPV 8.9 fL (7.4-11.0) 01/06/18 10:30 Neut % (Auto) 80.1 % (42.0-75.0) H 01/06/18 10:30 Lymph % (Auto) 14.0 % (21.0-51.0) L 01/06/18 10:30 [place] % (Auto) 5.6 % (0.0-13.0) 01/06/18 10:30 Eos % (Auto) 0.0 % (0.9-2.9) L 01/06/18 10:30 Baso % (Auto) 0.3 % (0.2-1.0) 01/06/18 10:30 Neut # (Auto) 8.1 x10^3/uL (2.2-4.8) H 01/06/18 10:30 Lymph # (Auto) 1.4 X10^3/uL (1.3-2.9) 01/06/18 10:30 [place] # (Auto) 0.6 x10^3/uL (0.3-0.8) 01/06/18 10:30 Eos # (Auto) 0.0 x10^3/uL (0.0-0.2) 01/06/18 10:30 Baso # (Auto) 0.0 X10^3/uL (0.0-0.1) 01/06/18 10:30 Absolute Nucleated RBC 0.0 /100WBC 01/06/18 10:30 Sodium 132 mmol/L (136-145) L 01/06/18 10:30 Corrected Sodium 133 mmol/L (136-145) L 01/06/18 10:30 Potassium 2.7 mmol/L (3.5-5.1) L* 01/06/18 10:30 Chloride 98 mmol/L (98-107) 01/06/18 10:30 Carbon Dioxide 22.4 mmol/L (21-32) 01/06/18 10:30 BUN 14 mg/dL (7-18) 01/06/18 10:30 Creatinine 1.01 mg/dL (0.70-1.30) 01/06/18 10:30 Est GFR (MDRD) Af Amer > 60 (>60) 01/06/18 10:30 Est GFR (MDRD) Non-Af > 60 (>60) 01/06/18 10:30 Glucose 160 mg/dL (65-99) H 01/06/18 10:30 Calcium 8.4 mg/dL (8.5-10.1) L 01/06/18 10:30 Corrected Calcium 9.1 mg/dL (8.5-10.1) 01/06/18 10:30 Total Bilirubin 0.30 mg/dL (0.2-1.0) 01/06/18 10:30 AST 44 Units/L (15-37) H 01/06/18 10:30 ALT 74 Units/L (12-78) 01/06/18 10:30 Alkaline Phosphatase 77 Units/L (46-116) 01/06/18 10:30 Total Protein 8.1 g/dL (6.4-8.2) 01/06/18 10:30 Albumin 3.1 g/dL (3.4-5.0) L 01/06/18 10:30 Globulin 5.0 g/dL (2.5-4.5) H 01/06/18 10:30 Albumin/Globulin Ratio 0.6 Ratio (1.1-2.1) L 01/06/18 10:30 Amylase 31 Units/L (25-115) 01/06/18 10:30 Lipase 46 Units/L (73-393) L 01/06/18 10:30 Stool Description 45g,liquid,unformed 01/06/18 12:30 Stool for White Cells Positive (NEGATIVE) A 01/06/18 12:30 Stl C. diff Tox B Gene Negative (NEGATIVE) 01/06/18 12:30 Stl C. diff [id number] Negative (NEGATIVE) 01/06/18 12:30 Cryptosporid parvum Ag Negative (NEGATIVE) 01/06/18 12:30 E. histolytica Antigen Negative (NEGATIVE) 01/06/18 12:30 Giardia lamblia Ag Negative (NEGATIVE) 01/06/18 12:30 - XRAY XRAY Interpreted by: Radiologist XRAY Findings: REPORT DISCUSS WITH PATIENT. - Diagnosis Discharge Problem: Gastroenteritis, Infective diarrhea, Campylobacter diarrhea, Hypokalemia Abdominal pain Qualifiers: Abdominal location: generalized Qualified Code(s): R10.84 - Generalized abdominal pain - Discharge Plan Disposition: 01 HOME, SELF-CARE Condition: Stable Prescriptions: Ciprofloxacin HCl [CIPRO 500 MG TAB *] 500 mg PO Q12H #20 tab Dicyclomine HCl [Bentyl Cap 10 mg] 10 mg PO TID PRN #15 cap PRN Reason: Diphenoxylate/Atropine [Lomotil] 1 tab PO TID PRN #15 tab PRN Reason: - Follow ups/Referrals Follow ups/Referrals: Leena AMBROSIO [Primary Care Provider] - 2 days - Instructions Instructions: Hypokalemia, Abdominal Pain, Adult, [id number], Diarrhea, Adult , [id number] Additional Instructions: RETURN TO ED IF WORSE.
[2018-01-06] MEDS ORDERED: NS 1000 ML 1,000 ML ONE (10:33)
[2018-01-06 10:44] LABS: BASOPHILS % (AUTO) 0.3 % (0.2-1.0); HEMATOCRIT 40.6 % (42.0-54.0); HEMOGLOBIN 14.3 g/dL (13.5-18.0); LYMPHOCYTES # (AUTO) 1.4 X10^3/uL (1.3-2.9); MEAN CORPUSCULAR HEMOGLOBIN 31.9 pg (27.0-34.0); MEAN CORPUSCULAR HGB CONC 35.1 g/dL (33.0-35.0); MEAN CORPUSCULAR VOLUME 90.9 fL (80.0-100.0); MEAN PLATELET VOLUME 8.9 fL (7.4-11.0); MONOCYTES # (AUTO) 0.6 x10^3/uL (0.3-0.8); MONOCYTES % (AUTO) 5.6 % (0.0-13.0); NEUTROPHILS # (AUTO) 8.1 x10^3/uL (2.2-4.8); NEUTROPHILS % (AUTO) 80.1 % (42.0-75.0); PLATELET COUNT 252 X10^3/uL (150.0-450.0); RED BLOOD COUNT 4.47 X10^6/uL (4.7-6.0); RED CELL DISTRIBUTION WIDTH 13.7 % (11.6-16.5); WHITE BLOOD COUNT 10.1 X10^3/uL (3.6-10.0)
[2018-01-06 10:46] LABS: BLOOD UREA NITROGEN 14 mg/dL (7-18); CALCIUM 8.4 mg/dL (8.5-10.1); CARBON DIOXIDE 22.4 mmol/L (21-32); CHLORIDE 98 mmol/L (98-107); COR NA(FOR HYPERGLY) 133 mmol/L (136-145); CREATININE 1.01 mg/dL (0.70-1.30); SODIUM 132 mmol/L (136-145); eGFR BLACK RACES > 60 (>60); eGFR NON BLACK RACES > 60 (>60)
[2018-01-06 10:50] LABS: ALANINE AMINOTRANSFERASE 74 Units/L (12-78); ALBUMIN 3.1 g/dL (3.4-5.0); ALKALINE PHOSPHATASE 77 Units/L (46-116); AMYLASE 31 Units/L (25-115); ASPARTATE AMINO TRANSFERASE 44 Units/L (15-37); COR CA(FOR HYPOALB) 9.1 mg/dL (8.5-10.1); LIPASE 46 Units/L (73-393); TOTAL PROTEIN 8.1 g/dL (6.4-8.2)
[2018-01-06] MEDS ORDERED: NS + KCL 40 MEQ/L 1,000 ML IV SCH (11:00)
[2018-01-06] MEDS ORDERED: NS 1000 ML 1,000 ML IV SCH (11:00)
--- NOTE | 2018-01-06 12:13 | CT ---
HISTORY: Nausea, vomiting, abdominal pain Study: CT abdomen pelvis without contrast Comparison: 12/10/2015 Technique: Axial noncontrast images with coronal and sagittal reformats. Dose reduction procedures we re used with mA/kv adjusted for body size. The examination is limited due to the lack of intravenous and oral contrast. The examination was performed in this matter at the sole discretion of the orderin g caregiver and without any Radiology input. Findings: The lung bases are clear. The liver, spleen, adrenal glands, and pancreas are within normal limits to the limitations of an unenhanced examination. No opaque stones are visible within the gallbladder. T he kidneys are unobstructed and without stones. No ureteral calculi are identified. No significant in traperitoneal or retroperitoneal lymphadenopathy is identified. There are no findings suggestive of d iverticulitis or colitis. The appendix is not identified with absolute certainty. There are no second eliana signs of appendicitis identified. Examination of the pelvis demonstrated no evidence for pelvic m asses, pelvic fluid, or pelvic lymphadenopathy. No definite bladder abnormality is identified. No dis crete lytic or blastic skeletal lesions are identified. There are findings suggestive of Paget's dise ase involving the left hemipelvis. IMPRESSION: No acute intra-abdominal or intrapelvic abnormality to the limitations of an examination performed wi thout intravenous and without oral contrast. This limits this examination. 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
[2018-01-06] MEDS ORDERED: LOMOTIL PO ONE (13:29)
[2018-01-06 13:34] LABS: STOOL FOR WBC POSITIVE (NEGATIVE)
[2018-01-06] MEDS ORDERED: CIPRO TAB 500 MG PO ONE ×2 (13:40→13:44)
[2018-01-06] MEDS ORDERED: LOMOTIL ONE (13:44)
[2018-01-06] MEDS ORDERED: K-LYTE EFFERVESCENT ONE (13:49)
[2018-01-06] MEDS ORDERED: K-LYTE EFFERVESCENT PO SCH (14:00)
[2018-01-06 14:03] LABS: CRYPTOSPORIDIUM PARVUM ANTIGEN NEGATIVE (NEGATIVE); GIARDIA LAMBLIA ANTIGEN NEGATIVE (NEGATIVE)
== END 2018-01-06 15:07 | disposition home or self-care (01) ==
LOC: ER 09:16
DX: K52.89 Other specified noninfective gastroenteritis and colitis (principal); A09 Infectious gastroenteritis and colitis, unspecified; A04.5 Campylobacter enteritis; E87.6 Hypokalemia; R10.84 Generalized abdominal pain
CPT/HCPCS: 36415; 74176; 80053; 82150; 83630; 83690; 85025; 87045; 87077; 87186; 87328; 87329; 87336; 87427; 87449; 87493; 96365; 96367; 99283; A4222

== ENCOUNTER 2024-08-17 03:10 | Observation (INO) ==
[2024-08-17 03:21] VITALS: BMI 22.2
[2024-08-17] MEDS: VISTARIL PO ONE (03:29)
[2024-08-17] MEDS: SOLU-Medrol 125 MG VIAL IM ONE (03:31)
[2024-08-17] MEDS: PEPCID TAB 40 MG PO ONE (04:57)
--- NOTE | 2024-08-17 06:01 | DR.ALLERGY ---
HPI Time Seen Time Seen by Provider: 08/17/24 04:38 PCP Primary Care Physician: CAMELIA Complaint/Symptoms Chief Complaint:: PT AMBULATORY IN ED WITH C/O ALLERGIC REACTION TO NUTS. PT STATES HE ONLY ATE ABOUT 10 PEANUTS. COVID-19 Coronavirus risk:travel/contact w/high risk person: No Has patient experienced Coronavirus symptoms: No Source History Provided: Patient Mode of Arrival Mode of Arrival: Ambulatory Timing Onset of Chief Complaint: 08/17/24 PMH PMH Past Medical History: Yes Past Medical History: Anemia, Anxiety, Arthritis, Depression, Dyslipidemia, GERD and Hypertension Past Medical History Comment: VITAMIN D DEFICIENCY COLON CANCER PROSTATE CANCER NEUROPATHY Past Surgical History: Yes Surgical History: Ortho Surgery Past Surgical History Comment: HEMORRHOIDECTOMY Family History History of Family Medical Conditions: Yes Family Medical History: Cancer, Coronary Artery Disease and Hypertension Social History Does patient currently use any type of tobacco product: Yes Have you used tobacco products in the last 12 months: Yes Type of Tobacco Use: Cigarettes Does any household member use tobacco: No Alcohol Use: Occasionally Do you use any recreational Drugs:: Yes (marijuana) Lives With: Alone Lives Where: Home Travel Risk Coronavirus risk:travel/contact w/high risk person: No Has patient experienced Coronavirus symptoms: No Infectious screening In the last 2 months have you had wt loss of >10#?: NO Have you had fever, night sweats or hemotysis?: No Have you traveled outside the country in the last 6 months?: No Isolation: Standard PE Vitals Vital Signs: Temp Pulse Resp BP Pulse Ox O2 Del Method 08/17/24 08:03 18 08/17/24 07:31 141/85 08/17/24 07:00 124/83 08/17/24 06:30 131/84 08/17/24 06:02 131/83 08/17/24 04:36 69 113/73 94 L 08/17/24 03:10 98.2 F 82 20 95/54 95 Room Air Opioid Opioid Risk Tool Personal Hx of Substance Abuse: Prescription Drugs Age (Frantz box if 16-45): No History of Preadolescent Sexual Abuse: No Total: 0 Total Score Risk Category: Low Risk Copyright: Uday ARMSTRONG predicting aberrant behaviors Discharge Plan Diagnosis Discharge Problem: Angioedema, Acute allergic reaction Discharge Plan Patient Disposition: 01 HOME, SELF-CARE Condition: Stable Orders to Discharge Patient Discharge Orders: Transfer (Routine); Ordered 08/17/24 Ordered By: MELISSA DOMINGUEZ
[2024-08-17] MEDS: SOLU-Medrol 125 MG VIAL IVP ONE (08:01)
[2024-08-17] MEDS: BENADRYL INJ 50 MG VIAL IVP ONE (08:02)
[2024-08-17] MEDS: TORADOL 30 MG VIAL IVP ONE (08:03)
[2024-08-17] MEDS ORDERED: TORADOL 30 MG VIAL IVP PRN (08:39)
[2024-08-17] MEDS ORDERED: BENADRYL INJ 50 MG VIAL IV PRN (10:45)
[2024-08-17] MEDS: NS 1,000 ML IV 1,000 ML IV SCH (11:45)
[2024-08-17] MEDS: SOLU-Medrol 40 MG VIAL IVP SCH (15:05)
[2024-08-18 05:59] LABS: BASOPHILS % (AUTO) 0.2 % (0.2-1.0); EOSINOPHILS % (AUTO) 0.1 % (0.9-2.9); HEMATOCRIT 32.7 % (42.0-54.0); LYMPHOCYTES # (AUTO) 5.1 X10^3/uL (1.3-2.9); LYMPHOCYTES % (AUTO) 44.4 % (21.0-51.0); MEAN CORPUSCULAR HEMOGLOBIN 31.3 pg (27.0-34.0); MEAN CORPUSCULAR HGB CONC 33.6 g/dL (33.0-35.0); MONOCYTES # (AUTO) 0.7 x10^3/uL (0.3-0.8); MONOCYTES % (AUTO) 5.9 % (0.0-13.0); NEUTROPHILS # (AUTO) 5.7 x10^3/uL (2.2-4.8); NEUTROPHILS % (AUTO) 49.4 % (42.0-75.0); PLATELET COUNT 252 X10^3/uL (150.0-450.0); RED BLOOD COUNT 3.52 X10^6/uL (4.7-6.0); WHITE BLOOD COUNT 11.5 X10^3/uL (3.6-10.0)
[2024-08-18 06:27] LABS: ALANINE AMINOTRANSFERASE 75 Units/L (12-78); ALBUMIN 2.6 g/dL (3.4-5.0); ALKALINE PHOSPHATASE 80 Units/L (46-116); ASPARTATE AMINO TRANSFERASE 33 Units/L (15-37); BLOOD UREA NITROGEN 12 mg/dL (7-18); CALCIUM 8.7 mg/dL (8.5-10.1); CARBON DIOXIDE 28.1 mmol/L (21-32); CHLORIDE 108 mmol/L (98-107); COR CA(FOR HYPOALB) 9.8 mg/dL (8.5-10.1); COR NA(FOR HYPERGLY) 144 mmol/L (136-145); CREATININE 0.72 mg/dL (0.70-1.30); GLUCOSE 133 mg/dL (65-99); POTASSIUM 3.2 mmol/L (3.5-5.1); SODIUM 143 mmol/L (136-145); TOTAL PROTEIN 6.8 g/dL (6.4-8.2); eGFR NON BLACK RACES > 60 (>60)
[2024-08-18] MEDS ORDERED: CONSULT PHARMACY - POTASSIUM & MAGNESIUM XX SCH (08:00)
[2024-08-18] MEDS: K-DUR TAB 20 MEQ PO SCH (08:35)
[2024-08-18] MEDS ORDERED: PEPCID 20 MG VIAL IVP ONE (09:17)
[2024-08-18] MEDS: PEPCID 20 MG VIAL 20 MG in NS 50 ML IV 50 ML IV ONE (09:58)
[2024-08-18] MEDS: SOLU-Medrol 40 MG VIAL IVP ONE (09:59)
[2024-08-18] MEDS: BENADRYL INJ 50 MG VIAL IV ONE (09:59)
[2024-08-18 14:16] VITALS: BP 163/81; PULSE 56; RESP 19; TEMP 97.1; O2SAT 95
== END 2024-08-18 13:30 | disposition home or self-care (01) ==
LOC: SUPCPDRO → MED/SURG 03:10 → ER 03:10 → MED/SURG 10:28
PROVIDERS: ADMIT Internal Medicine; ATTEND Internal Medicine
DX: T78.3XXA Angioneurotic edema, initial encounter; D64.89 Other specified anemias; T78.1XXA Other adverse food reactions, not elsewhere classified, initial encounter; M19.90 Unspecified osteoarthritis, unspecified site; Z72.0 Tobacco use; I10 Essential (primary) hypertension; F41.8 Other specified anxiety disorders; K21.9 Gastro-esophageal reflux disease without esophagitis; R26.89 Other abnormalities of gait and mobility; E83.42 Hypomagnesemia; E78.5 Hyperlipidemia, unspecified; E87.6 Hypokalemia; E11.65 Type 2 diabetes mellitus with hyperglycemia